=== PATIENT | male | born 1970 | race Caucasian/White ===

== ENCOUNTER 2020-01-10 18:05 | Inpatient (IN) | payer BC ==
--- OUTSIDE RECORDS SUMMARY | 2020-01-10 18:08 | XMS REPORT | Summary of Care ---
:1970 Author Organization [facility] - [facility] Address [address] [place] [id number] Care Team Providers Name Role Phone Abi Rodriguez Primary Care Provider Reason for Referral (Routine) Status Reason Specialty Diagnoses / Referred By Referred To Procedures Contact Contact Authorized Cardiology Diagnoses CORREA (dyspnea on exertion) Joyce Vann MD Procedures ECHO ROUTINE W/DOPPLER COLOR Preferred Location: [facility] [address] [facility] [address] [place], [place] [address] Radiology Services (Routine) Status Reason Specialty Diagnoses / Referred By Referred To Procedures Contact Contact New Request Diagnostic Diagnoses CORREA (dyspnea on exertion) Joyce Vann, Radiology Procedures NM MYOCARDIUM PERFUSION STRESS AND REST [address] 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 Rodriguez / blood pressure Onel Rodriguez Qiangjun, DISEASE / Procedures CONSULT/REFERRAL CARDIOLOGY NEW VISIT (FIRST TIME) [address] KATIE HAMMER Cardiology VIRAJ I [address] [id number] [address] Phone: [place], [place] [phone] Encounter Details Date Type Department Care Team Description [facility]ysp[facility] (Primary Dx); Cardiology- [address] Fatigue, unspecified type; [address] [place] [address] DRIVE Essential hypertension; Drive, [address] BRANDT treated with BiPAP; [place], [place] [address] Morbid obesity [id number] Allergies Active Allergy Reactions Severity Noted Date Comments Lisinopril Other - See comments 10/22/2019 vertogo Penicillins Anaphylaxis 05/07/2006 documented as of this encounter (statuses as of 10/22/2019) Medications Medication Sig Dispensed Refills Start End Date Status Date olmesartan 40 mg Take 40 mg by 0 Active tablet mouth daily. chlorthalidone 25 Take 25 mg by 0 Active mg tablet mouth daily. terazosin 1 mg Take 1 capsule 30 capsule 2 Active capsuleIndications by mouth at 0 : Essential bedtime. hypertension amLODIPine 10 mg Take 10 mg by 0 10/22/19 Discontinued tablet mouth daily. 20 (Discon tinued by another clinician) atenolol 100 mg Take 100 mg by 0 10/22/19 Discontinued tablet mouth daily. 20 (Discon tinued by another clinician) testosterone Apply 3 Pumps to 2 Bottle 1 10/22/19 Discontinued (ANDROGEL) 20.25 area(s) daily. 8 20 (Therapy mg/1.25 gram (1.62 c ompleted) %) gel pumpIndications: Low testosterone, Pain in both thighs traMADOL 50 mg Take 1 tablet by 21 tablet 0 10/22/19 Discontinued tablet mouth every 8 8 20 (Thera py (eight) hours as com pleted) needed (moderate-severe pain). methocarbamol 750 Take 1 tablet by 28 tablet 0 10/21 Discontinued mg tablet mouth 4 (four) 8 20 (Ther apy times daily as compl eted) needed (muscle pain or spasm). diclofenac 50 mg Take 1 tablet by 30 tablet 0 Discontinued EC tablet mouth 2 (two) 8 20 (Thera py times daily with com pleted) meals as needed for Pain. Use sparingly due to possible side effects. promethazine-codei TAKE 1 TO 2 0 10/22/19 Discontinued ne 6.25-10 mg/5 mL TEASPOONSFUL BY 0 20 (Therapy syrup MOUTH 3 TIMES A comp leted) DAY NEEDED benzonatate 100 mg TAKE 1 CAPSULE 0 Discontinued capsule BY MOUTH EVERY 4 0 20 (Th erapy HOURS NEEDED comp leted) documented as of this encounter (statuses as of 10/22/2019) Active Problems Problem Noted Date Bilateral thigh pain 01/28/2018 Left hand paresthesia 01/28/2018 Bilateral lower extremity edema 01/28/2018 Leukocytosis, unspecified type 01/28/2018 Anemia, unspecified type 01/28/2018 Hearing loss HTN (hypertension) Hypogonadism in male BRANDT (obstructive sleep apnea) documented as of this encounter (statuses as of 10/22/2019) Resolved Problems Problem Noted Date Resolved Date 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 18 Overview: Both ears, mainly right ear drainage; ve ry painful, sometimes blood, lot of ringing Dizziness and giddiness 07/30/2006 01/28/2018 Dyspepsia and other specified disorders of function of stoma ch 07/30/2006 01/28/2018 Overview: Upset stomach Dysphagia 07/30/2006 01/28/2018 Overview: Hard to swallow ICD10 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 documented as of this encounter Last Filed Vital Signs Vital Sign Reading Time Taken Comments Blood Pressure 122/72 10/22/2019 9:25 AM CDT Pulse 96 10/22/2019 9:25 AM CDT Temperature - - Respiratory Rate 21 10/22/2019 9:25 AM CDT Oxygen Saturation 94% 10/22/2019 9:25 AM CDT Inhaled Oxygen Concentration - - Weight 144.8 kg (319 lb 3.2 oz) 10/22/2019 9:25 AM CDT Height 175.3 cm (5' 9") 10/22/2019 9:25 AM CDT Body Mass Index 47.14 10/22/2019 9:25 AM CDT documented in this encounter Progress Notes Joyce Vann MD - 10/22/2019 9:20 AM CDT CARDIOLOGY CLINIC NOTE 10/22/2019 Reason for Referral/Presenting Complaint: dyspnea and fatigue PCP: Onel Rodriguez History of Present Illness: Yuri Crawford III is a 49 years old male with history of morbid obesity, HTN, and BRANDT on C-PAP. He is here for evaluation of dyspnea and fatigue. For the past 3 months he has been getting dyspnea with very short distance walking such as walking from room to room. No edema or orthopnea. Feeling tired all the time. Intermittent chest heaviness during exertion, rated 7/10, associated with dyspneaand sweating, without radiation. Gained 10 lbs this year. Getting BiPAP soon. His BP has been fluctuating although today it is normal. Intermittent palpitations. Non exertional left arm numbness. In the past he had side effects from amlodipine and beta blockers/spironolactone. Cardiovascular testing: EKG: Normal sinus rhythm. Normal EKG. Review of Systems: General: (-) fever, (-) chills, (-) weight change, (-) dizziness, (+) fatigue Skin: (-) rash HEENT: (-) headache, (-) change in vision Neck: (-) difficulty swallowing Heme: negative Resp: (-) cough, (+) dyspnea on exertion Cardio: (+) chest pain, (-) palpitations, (-) syncope GI: (-) vomiting, (-) diarrhea : negative Endo: (-) diabetes, (-) thyroid disease Neuro: (-) numbness, (-) tingling, (-) weakness Back: (-) pain ELSIE: (-) muscle pain, (-) claudication Psych: (-) anxiety, (-) depression Past Medical History: Past Medical History: Diagnosis Date Hearing loss HTN (hypertension) Hypogonadism in male BRANDT (obstructive sleep apnea) Current Medications: Current Outpatient Medications Medication Sig Dispense Refill chlorthalidone 25 mg tablet Take 25 mg by mouth daily. olmesartan 40 mg tablet Take 40 mg by mouth daily. terazosin 1 mg capsule Take 1 capsule by mouth at bedtime. 30 capsule 2 No current facility-administered medications for this visit. Social History: Social History Socioeconomic History Marital status: Spouse name: Not on file Number of children: Not on file Years of education: Not on file Highest education level: Not on file Occupational History Not on file Social Needs Financial resource strain: Not on file Food insecurity Worry: Not on file Inability: Not on file Transportation needs Medical: Not on file Non-medical: Not on file Tobacco Use Smoking status: Never Smoker Smokeless tobacco: Current User Types: Chew, Snuff Substance and Sexual Activity Alcohol use: Yes Comment: 3-4 times a year Drug use: Not on file Sexual activity: Not on file Lifestyle Physical activity Days per week: Not on file Minutes per session: Not on file Stress: Not on file Relationships Social connections Talks on phone: Not on file Gets together: Not on file Attends gnosticism service: Not on file Active member of club or organization: Not on file Attends meetings of clubs or organizations: Not on file Relationship status: Not on file Intimate partner violence Fear of current or ex partner: Not on file Emotionally abused: Not on file Physically abused: Not on file Forced sexual activity: Not on file Other Topics Concern Not on file Social History Narrative Not on file Family History Family History Problem Relation Age of Onset Coronary Heart Disease Mother Hypertension Mother Cancer Father [place] (myocardial infarction) Father Physical Examination: BP 122/72 (BP Location: Left arm, Patient Position: Sitting, BP CUFF SIZE: Adult Large) | Pulse 96| Resp 21 | Ht 5' 9" (1.753 m) | Wt 319 lb 3.2 oz (144.8 kg) | SpO2 94% | BMI 47.14 kg/m Constitutional: alert and oriented x 3 (person, place and date/time); no apparent distress, obese ENT: normocephalic atraumatic, supple, no lymphadenopathy, no bruits, no JVD Lungs: clear to auscultation bilaterally Cardiovascular: S1, S2 normal, regular; no murmurs, rubs or gallops GI: soft; non-tender; non-distended; normoactive bowel sounds : not examined Musculoskeletal: Extremities: no clubbing, cyanosis, or edema Skin: no rashes Neuro: no focal deficits Assessment/Plan: ICD-10-CM ICD-9-CM 1. CORREA (dyspnea on exertion) R06.09 786.09 2. Fatigue, unspecified type R53.83 780.79 3. Essential hypertension I10 401.9 4. BRANDT treated with BiPAP G47.33 327.23 5. Morbid obesity E66.01 278.01 Chest heaviness and dyspnea on exertion--Suspect this is multifactorial due to morbid obesity, BRANDT, and deconditioning. I reviewed his workup including CXR, BNP, etc--unremarkable. Will get ECHO to rule out structural heart disease and Lexiscan nuclear stress test to assess ischemia. HTN--His BP is normal today. However reported fluctuation at home. Side effects from several antihypertensives. Will add Terazosin 1 mg QHS. Daily BP log. Low salt diet. Weight loss. Morbid obesity--If cardiac workup negative, will strongly recommend gastric weight loss surgery. BRANDT--BiPAP pending. Patient was counseled for lifestyle modifications including: diet, exercise and weight loss Thank you for allowing us to participate in the care of your patient. Please feel free to contact usfor any questions or if we can be of further assistance. Joyce Vann MD, FACC, FASE Job Analyst, Division of Cardiology [facility] documented in this encounter Plan of Treatment Date Type Specialty Care Team Description 10/28/2019 Laboratory Only Cardiology Joyce Vann M D [address] [facility] [address] [place] [phone] Pc, Adc Echo Room 1 - Name Type Priority Associated Diagnoses Order S chedule NM MYOCARDIUM PERFUSION IMAGING Routine CORREA (dyspnea on 1 Occurrences starting STRESS AND REST exertion) 10/22/2019 u ntil 11/20/2019 Health Maintenance Due Date Last Done Comments DTaP,Tdap,and Td Vaccines (1 - 1988 Tdap) COLON CANCER SCREENING ANNUAL 2019 FIT/FOBT COLON CANCER SCREENING FIT DNA 2019 EVERY 3 YEARS COLON CANCER SCREENING 2019 SIGMOIDOSCOPY EVERY 5 YEARS COLONOSCOPY 2019 Colorectal Cancer Screening 2019 Zoster Recombinant Vaccine 2019 (SHINGRIX) (1 of 2) INFLUENZA VACCINE (#1) 2019 Depression Screening 10/21/2020 10/22/2019 PNEUMOCOCCAL 0-64 YEARS COMBINED Aged Out No longer eligible based on SERIES patient's age to complete this topic documented as of this encounter Results Not on filedocumented in this encounter Visit Diagnoses Diagnosis CORREA (dyspnea on exertion) - Primary Other dyspnea and respiratory abnormalit y Fatigue, unspecified type Essential hypertension Unspecified essential hypertension BRANDT treated with BiPAP Morbid obesity documented in this encounter Insurance Payer Benefit Plan Subscriber ID Effective Dates Phone Address Type / Group [facility] [id number] 2017-Katheryn [phone] [address] PPO/POS [place] - OUT OF t 7 [id number] [place] [address] documented as of this encounter
--- OUTSIDE RECORDS SUMMARY | 2020-01-10 18:08 | XMS REPORT | Summary of Care ---
:1970 Author Organization [facility] - [facility] Address [address] [place] [id number] Care Team Providers Name Role Phone Abi Rodriguez Primary Care Provider Reason for Referral Radiology Services (STAT) Status Reason Specialty Diagnoses / Referred By Referred To Procedures Contact Contact New Request Diagnostic Diagnoses Chest pain, unspecified type Molina Diaz, Radiology Procedures XR CHEST 1 VW DO [address] [facility]. [address] [place] [address] Reason for Visit Reason Comments Chest Pain Shortness of Breath Auth/Cert Status Reason Specialty Diagnoses / Referred By Referred To Procedures Contact Contact Emergency Medicine [facility] Em ergency Dept [address] [place] [address] Fax: Encounter Details Date Type Department Care Team Description 10/13/2019 Emergency [facility]-Emergency Molina Diaz DO Chest pain, Department [address] [place] [address]. unspecified type [address] [place] [address] [address] (Primary Dx) [place] [address] [place] [id number] [phone] Allergies Active Allergy Reactions Severity Noted Date Comments Penicillins Anaphylaxis 05/07/2006 documented as of this encounter (statuses as of 10/13/2019) Medications Medication Sig Dispensed Refills Start Date End Date Status amLODIPine 10 mg Take 10 mg by mouth 0 Active tablet daily. atenolol 100 mg Take 100 mg by 0 Active tablet mouth daily. testosterone Apply 3 Pumps to 2 Bottle 1 01/13/2018 Active (ANDROGEL) 20.25 area(s) daily. mg/1.25 gram (1.62 %) gel pumpIndications: Low testosterone, Pain in both thighs traMADOL 50 mg tablet Take 1 tablet by 21 tablet 0 01/22/2018 Active mouth every 8 (eight) hours as needed (moderate-severe pain). methocarbamol 750 mg Take 1 tablet by 28 tablet 0 01/22/2018 Active tablet mouth 4 (four) times daily as needed (muscle pain or spasm). diclofenac 50 mg EC Take 1 tablet by 30 tablet 0 02/24/2018 Active tablet mouth 2 (two) times daily with meals as needed for Pain. Use sparingly due to possible side effects. promethazine-codeine TAKE 1 TO 2 0 08/06/2019 Active 6.25-10 mg/5 mL syrup TEASPOONSFUL BY MOUTH 3 TIMES A DAY NEEDED benzonatate 100 mg TAKE 1 CAPSULE BY 0 08/06/2019 Active capsule MOUTH EVERY 4 HOURS NEEDED documented as of this encounter (statuses as of 10/13/2019) Active Problems Problem Noted Date Bilateral thigh pain 01/28/2018 Left hand paresthesia 01/28/2018 Bilateral lower extremity edema 01/28/2018 Leukocytosis, unspecified type 01/28/2018 Anemia, unspecified type 01/28/2018 Hearing loss HTN (hypertension) Hypogonadism in male BRANDT (obstructive sleep apnea) documented as of this encounter (statuses as of 10/13/2019) Resolved Problems Problem Noted Date Resolved Date 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 18 Overview: Both ears, mainly right ear drainage; ve ry painful, sometimes blood, lot of ringing Dizziness and giddiness 07/30/2006 01/28/2018 Dyspepsia and other specified disorders of function of stoma ch 07/30/2006 01/28/2018 Overview: Upset stomach Dysphagia 07/30/2006 01/28/2018 Overview: Hard to swallow ICD10 Diagnosis Term Nuclear Medical Technologist Utility documented as of this encounter (statuses as of 10/13/2019) Social History Tobacco Use Types Packs/Day Years Used Date Never Smoker 10 Smokeless Tobacco: Current User Chew, Snuff Alcohol Use Drinks/Week oz/Week Comments Yes 3-4 times a year Sex Assigned at Date Recorded Not on file Job Start Date Occupation Industry Not on file Not on file Not on file Travel History Travel Start Travel End No recent travel history available. COVID-19 Exposure Response Date Recorded In the last month, have you been in contact with No / Unsure 10/13/2019 1:17 PM CDT someone who was confirmed or suspected to have Coronavirus / COVID-19? documented as of this encounter Last Filed Vital Signs Vital Sign Reading Time Taken Comments Blood Pressure 140/76 10/13/2019 5:02 PM CDT Pulse 104 10/13/2019 5:02 PM CDT Temperature 37.1 C (98.8 F) 10/13/2019 1:25 PM CDT Respiratory Rate 22 10/13/2019 5:02 PM CDT Oxygen Saturation 98% 10/13/2019 5:02 PM CDT Inhaled Oxygen Concentration - - Weight 138.3 kg (305 lb) 10/13/2019 1:25 PM CDT Height 175.3 cm (5' 9") 10/13/2019 1:25 PM CDT Body Mass Index 45.04 10/13/2019 1:25 PM CDT documented in this encounter Plan of Treatment Date Type Specialty Care Team Description 10/22/2019 Office Visit Cardiology Joyce Vann M D [address] [place] [address] 15 [phone] Health Maintenance Due Date Last Done Comments DTaP,Tdap,and Td Vaccines (1 - 1980 Tdap) Depression Screening 1981 COLONOSCOPY 2019 Zoster Recombinant Vaccine 2019 (SHINGRIX) (1 of 2) INFLUENZA VACCINE (#1) 2019 PNEUMOCOCCAL 0-64 YEARS COMBINED Aged Out No longer eligible based on SERIES patient's age to complete this topic documented as of this encounter Procedures Procedure Name Priority Date/Time Associated Diagnosis Comme nts XR CHEST 1 VW STAT 10/13/2019 3:01 Chest pain, Results fo r this PM CDT unspecified type procedure a re in the results section. D-DIMER STAT 10/13/2019 2:48 Chest pain, Results for this PM CDT unspecified type procedure a re in the results section. N-TERMINAL PRO-BNP STAT 10/13/2019 2:34 Chest pain, Resul ts for this PM CDT unspecified type procedure a re in the results section. CBC WITH DIFF STAT 10/13/2019 2:34 Chest pain, Results fo r this PM CDT unspecified type procedure a re in the results section. LIPID PANEL STAT Add-On 10/13/2019 2:34 Chest pain, Results for this (83329)(TOTAL PM CDT unspecified type procedure are in CHOLESTEROL, the results TRIGLYCERIDES, section. HDL) COMP. METABOLIC STAT 10/13/2019 2:34 Chest pain, Results for this PANEL (15395) PM CDT unspecified type procedure are in the results section. TROPONIN I STAT 10/13/2019 2:34 Chest pain, Results for this PM CDT unspecified type procedure a re in the results section. LIPASE STAT 10/13/2019 2:34 Chest pain, Results for this PM CDT unspecified type procedure a re in the results section. NOTICE OF PRIVACY Routine 10/13/2019 1:29 PRACTICES PM CDT CONSENT/REFUSAL Routine 10/13/2019 1:18 FOR DIAGNOSIS AND PM CDT TREATMENT documented in this encounter Results XR CHEST 1 VW (10/13/2019 3:01 PM CDT) Specimen Narrative Performed At HISTORY: Chest pain. PACS/VR/DOSE TECHNIQUE: 2 Portable AP erect views of the chest were obtained. No prior chest study available for comparison. FINDINGS: No acute pneumonia. No pneumot horax or pleural effusion or pulmonary congestion detected. Cardiac s ize is mildly enlarged. CONCLUSIONS: No signs of acute cardiopulmonary disease . Procedure Note [facility], Radiant Results Inft User - 2019 3:08 PM CDT HISTORY: Chest pain. TECHNIQUE: 2 Portable AP erect views of the chest were obtained. No prior chest study available for comparison. FINDINGS: No acute pneumonia. No pneumot horax or pleural effusion or pulmonary congestion detected. Cardiac s ize is mildly enlarged. CONCLUSIONS: No signs of acute cardiopul monary disease. Performing Organization Address City/State/Zipcode Phone Number PACS/VR/DOSE D-DIMER (10/13/2019 2:48 PM CDT) Pathologist Sig nature D-DIMER 0.36 <0.41 g/mL (FEU) [facility] Specimen Blood - VENOUS Narrative Performed At This test may be used in conjunction with a [facility] clinical pretest probability (PTP) assessment model to exclude venous thromboembolism (VTE) in patients suspected of deep venous thrombosis (DVT) and pulmonary embolism (PE) A D-Dimer value less than 0.50 g/ml (FEU) has a negative predicative value of 96 to 100% (95% CI)and 97 to 100% (95% CI) as an aid in the diagnosis of deep vein thrombosis (DVT) and pulmonary embolism when there is low or moderate pretest probability of PE or DVT. D-Dimer values are expressed in initial fibrinogen equivalent units (FEU)" The assay results should be used with other information, including the clinical context, in forming a diagnosis. Performing Organization Address City/[facility]/Zipcode Phone Number [facility] CLIA: [id number], [address] [place], [place] [address] LIPID PANEL (05689)(TOTAL CHOLESTEROL, TRIGLYCERIDES, HDL) (10/13/2019 2:34 PM CDT) Pathologist Sig nature CHOL 176 120 - 200 mg/dL [facility] HDL 35 (L) >40 mg/dL [facility] HDLC RATIO 5.0 <=5.0 [facility] TRIG 246 (H) 30 - 170 mg/dL [facility] LDL CHOL 92 <=160 mg/dL [facility] VLDL 49 5 - 60 mg/dL [facility] Specimen Blood - VENOUS Performing Organization Address City/[facility] Phone Number [facility] CLIA: [id number], [address] [place] [address] TROPONIN I (10/13/2019 2:34 PM CDT) Pathologist Sig nature TROPONIN I <0.012 <=0.034 ng/mL [facility] Specimen Blood - VENOUS Narrative Performed At Equal or Less than 0.034 ng/ml---Normal [facility] Note: Cardiac troponin begins to rise 3-4 hours after the onset of ischemia. Repeat in 4-6 hours if the sample was drawn within 3-4 hours of the onset of the symptom and found normal. Between 0.035 and 0.120 ng/mL--- Borderline. Questionable myocardial injury or necros is Note: Serial measurement may be necessary to confirm or exclude the diagnosis of myocardial injury or necrosis; Clinical correlation (symptoms, EKGs, imaging studies, and others) required; Repeat in 4-6 hours if clinically indicated. Equal or Higher than 0.121 ng/mL---Abnormal. Myocardial Injury or Necrosis Likely Biotin has been reported to cause a negative bias, interpret results relative to patient's use of biotin. Performing Organization Address City/[facility] Phone Number [facility] CLIA: [id number], [address] [place] [address] N-TERMINAL PRO-BNP (10/13/2019 2:34 PM CDT) Pathologist Sig Praccel NT-proBNP 57 <=125 pg/mL [facility] Specimen Blood - VENOUS Narrative Performed At [facility] has been reported to cause a negative [facility] bias, interpret results relative to patient's use of biotin. Performing Organization Address [facility] Phone Number [facility] CLIA: [id number], [address] [place] [address] LIPASE (10/13/2019 2:34 PM CDT) Pathologist [facility] Praccel LIPASE 68 0 - 220 U/L [facility] Specimen Blood - VENOUS Performing Organization Address [facility] Phone Number [facility] CLIA: [id number], [address] [place] [address] COMP. METABOLIC PANEL ([id number]) (10/13/2019 2:34 PM CDT) Pathologist Sig Praccel NA 137 135 - 145 [facility] mmol/L [facility] K 4.0 3.5 - 5.0 [facility] mmol/L [facility] CL 105 98 - 108 mmol/L [facility] CO2 TOTAL 23 23 - 31 mmol/L [facility] AGAP 9 2 - 16 [facility] BUN 22 7 - 23 mg/dL [facility] GLUCOSE 88 70 - 110 mg/dL [facility] CREATININE 1.22 0.60 - 1.25 [facility] mg/dL [facility] TOTAL BILI 0.5 0.1 - 1.1 mg/dL [facility] CALCIUM 9.2 8.6 - 10.6 [facility] mg/dL [facility] T PROTEIN 8.5 (H) 6.3 - 8.2 g/dL [facility] ALBUMIN 4.3 3.5 - 5.0 g/dL [facility] ALK PHOS 106 34 - 122 U/L [facility] ALTv 35 5 - 50 U/L [facility] AST(SGOT) 34 13 - 40 U/L [facility] eGFR Calculation 62.9 mL/min/1.73m2 [facility] ([facility] LABORATORY [place]) eGFR Calculation 76.2 mL/min/1.73m2 [facility] () [facility] Specimen Blood - VENOUS Narrative Performed At [facility] Glomerular Filtration Rate (GFR) [facility] and Staging of Kidney Disease* + + +- + | GFR (mL/min/1.73 m2) | With Kidney Damage | Without Kidney Damage + + +- + | >90 | Stage one | Normal + + +- + | 60-89 | Stage two | Decreased GFR + + +- + | 30-59 | Stage three | Stage three + + +- + | 15-29 | Stage four | Stage four + + +- + | <15 (or dialysis) | Stage five | Stage five + + +- + *Each stage assumes the associated GFR level has been in effect for at least three months. Stages 1 to 5, with or without kidney disease, indicate chronic kidney disease. Notes: Determination of stages one and two (with eGFR >59mL/min/1.73 m2) requires estimation of kidney damage for at least three months as defined by structural or functional abnormalities of the kidney, manifested by either: Pathological abnormalities or Markers of kidney damage (including abnormalities in the composition of the blood or urine or abnormalities in imaging tests). Performing Organization Address City/State/Zipcode Phone Number [facility] CLIA: [id number], [address] [place], [place] [address] CBC WITH DIFF (10/13/2019 2:34 PM CDT) [facility] WBC 12.20 (H) 4.20 - 10.70 [facility] 10*3/L [facility] RBC 5.32 4.26 - 5.52 [facility] 10*6/L [facility] HGB 11.3 (L) 12.2 - 16.4 [facility] g/dL [facility] HCT 37.0 (L) 38.4 - 49.3 % [facility] MCV 69.5 (L) 81.7 - 95.6 fL [facility] MCH 21.2 (L) 26.1 - 32.7 pg [facility] MCHC 30.5 (L) 31.2 - 35.0 [facility] g/dL [facility] RDW-SD 41.8 38.5 - 51.6 fL [facility] RDW-CV 17.0 (H) 12.1 - 15.4 % [facility] PLT 444 (H) 150 - 328 [facility] 10*3/L [facility] MPV 9.6 (L) 9.8 - 13.0 fL [facility] NRBC/100 WBC 0.0 0.0 - 10.0 /100 [facility] WBCs [facility] NRBC x10^3 <0.01 10*3/L [facility] GRAN MAT (NEUT) % 72.7 % [facility] IMM GRAN % 0.80 % [facility] LYMPH % 17.2 % [facility] MONO % 8.1 % [facility] EOS % 0.5 % [facility] BASO % 0.7 % [facility] GRAN MAT x10^3(ANC) 8.87 (H) 1.99 - 6.95 [facility] 10*3/uL HOSPITAL LAB[facility]ATORY IMM GRAN x10^3 0.10 (H) 0.00 - 0.06 [facility] 10*3/uL HOSPITAL LAB[facility]ORY LYMPH x10^3 2.10 1.09 - 3.23 [facility] 10*3/uL HOSPITAL LAB[facility]ORY MONO x10^3 0.99 0.36 - 1.02 [facility] 10*3/uL HOSPITAL LAB[facility]ATORY EOS x10^3 0.06 0.06 - 0.53 [facility] 10*3/uL HOSPITAL LAB[facility]ORY BASO x10^3 0.08 0.01 - 0.09 [facility] 10*3/uL [facility] Specimen Blood - VENOUS Performing Organization Address City/State/Zipcode Phone Number [facility] CLIA: [id number], [address] [place], [place] [address] documented in this encounter Visit Diagnoses Diagnosis Chest pain, unspecified type - Primary documented in this encounter Administered Medications Medication Order MAR Action Action Date Dose Rate Site NaCl 0.9% (NS) bolus infusion 500 mL at 999 mL/hr, 500 mL, IV Infusion, ONCE, 1 dose, Fri at 1815, STAT Medication Order MAR Action Action Date Dose Rate Site NaCl 0.9% (NS) bolus New Bag 10/13/2019 2:34 PM CDT 500 mL 99 9 mL/hr infusion 500 mL at 999 mL/hr, 500 mL, IV Infusion, ONCE, 1 dose, Fri10/13/19 at 1430, STAT documented in this encounter Insurance Payer Benefit Plan Subscriber ID Effective Dates Phone Address Type / Group [facility] [id number] 2017-Katheryn [phone] [address] PPO/POS [place] - OUT OF t 7 [id number] [place] [address] documented as of this encounter
--- OUTSIDE RECORDS SUMMARY | 2020-01-10 18:08 | XMS REPORT | Continuity of Care Document ---
:1970 Author Organization [facility] t Address [address] [place] [address] Care Team Providers Name Role Phone Lab, Fam Pob I Attending Clinician Unavailable Edwar HAMMER Attending Clinician Kristina Basilio MD Attending Clinician Pob, Lab Main Attending Clinician Unavailable Only, Test Attending Clinician Unavailable Doctor Unassigned, Name Attending Clinician Unavailable Problems This patient has no known problems. Allergies, Adverse Reactions, Alerts This patient has no known allergies or adverse reactions. Medications This patient has no known medications. Procedures This patient has no known procedures. Encounters Start End Encounter Admission Attending Care Care Encounter Source Date/Time Date/Time Type Type Clinicians Facility Department ID 2020-01-08 2020-01-08 Laboratory Lab, [facility] [id number] 09:46:41 10:06:41 Only Fam Pob I Health [id number] [place] 4.2.7.2.686 Professio [phone] nal [address] 2019-12-03 2019-12-03 [facility] Joyce Vann [id number] 06:39:04 23:59:00 Encounter Esa Basilio [id number] [facility] [id number] [id number] 2019-11-30 2019-11-30 Telephone Edwar, [facility] [id number] 00:00:00 00:00:00 Joyce Smith [id number] [place] [phone] [facility] 2019-11-29 2019-11-29 Aging Department Supervisor Kaylyn, [facility] [id number] 09:14:49 09:29:49 Visit Lab Main Sarah [id number] [place] 4.2.7.2.686 Professio [phone] [facility] [address] [facility] 2019-11-29 2019-11-29 Laboratory Only, [facility] [id number] 09:11:18 09:26:18 Only Test Sarah [id number] [place] [id number] [place] [id number] [facility] 2019-11-29 2019-11-29 Orders Doctor NAYANA [id number] 00:00:00 00:00:00 Only Unassigned, [place] [id number] [place] [facility] 4.2.7.2.686 [phone] [id number] 2019-11-26 2019-11-26 Patient Psychiatric, [facility] [id number] 00:00:00 00:00:00 Secure Ms [employer] [id number] [place] 4.2.7.2.686 [place] [phone] [place] [address] [facility] 2019-11-26 2019-11-26 Patient Psychiatric, [facility] [id number] 00:00:00 00:00:00 Secure g [employer] [id number] [place] 4.2.7.2.686 Ha [phone] [facility] Office Building 2019-11-26 2019-11-26 Patient Psychiatric, [facility] [id number] 00:00:00 00:00:00 Secure [facility] [place] [place] [employer] [id number] [place] 4.2.7.2.686 Ha [phone] Medical [facility] Office [facility] 2019-11-25 2019-11-25 Telephone Edwar, Allyn [id number] 00:00:00 00:00:00 Joyce Powers [id number]686 [id number] [id number] 2019-11-17 2019-11-17 Telephone Allyn Vann [id number] 00:00:00 00:00:00 Joyce Powers [id number]686 [phone] 247 Results This patient has no known results.
--- OUTSIDE RECORDS SUMMARY | 2020-01-10 18:09 | XMS REPORT | Summary of Care ---
:1970 Author Organization [facility] - [facility] Address [address] [place] [address] Care Team Providers Name Role Phone Abi Rodriguez Primary Care Provider Reason for Referral Radiology Services (Routine) Status Reason Specialty Diagnoses / Referred By Referred To Procedures Contact Contact Authorized Diagnostic Diagnoses CORREA (dyspnea on exertion) Joyce Vann, Radiology Procedures NM MYOCARDIUM PERFUSION STRESS AND REST [address] [place] [address] [address] [place] [address] Reason for Visit Radiology Services (Routine) Status Reason Specialty Diagnoses / Referred By Referred To Procedures Contact Contact Authorized Diagnostic Diagnoses CORREA (dyspnea on exertion) Joyce Vann, Radiology Procedures NM MYOCARDIUM PERFUSION STRESS AND REST [address] [place] [address] [address] [place] [address] Encounter Details Date Type Department Care Team Description 11/04/2019 Hospital Encounter [facility] Nuclear Morena Vann MD [facility] [address] [place] [address] [address] [address] [place] [address] [phone] Allergies Active Allergy Reactions Severity Noted Date Comments Lisinopril Other - See comments 10/22/2019 vertogo Penicillins Anaphylaxis 05/07/2006 documented as of this encounter (statuses as of 11/05/2019) Medications Medication Sig Dispensed Refills Start Date End Date Status olmesartan 40 mg tablet Take 40 mg by 0 Active mouth daily. chlorthalidone 25 mg Take 25 mg by 0 Active tablet mouth daily. terazosin 1 mg Take 1 capsule 30 capsule 2 10/22/2019 Active capsuleIndications: by mouth at Essential hypertension bedtime. 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 18 Overview: Both ears, mainly right ear drainage; ve ry painful, sometimes blood, lot of ringing Dizziness and giddiness 07/30/2006 01/28/2018 Dyspepsia and other specified disorders of function of stoma ch 07/30/2006 01/28/2018 Overview: Upset stomach Dysphagia 07/30/2006 01/28/2018 Overview: Hard to swallow ICD10 Diagnosis Term Clerk Supervisor Utility documented as of this encounter (statuses as of 11/05/2019) Social History Tobacco Use Types Packs/Day Years Used Date Never Smoker 10 Smokeless Tobacco: Current User Chew, Snuff Alcohol Use Drinks/Week oz/Week Comments Yes 3-4 times a year Sex Assigned at Date Recorded Not on file COVID-19 Exposure Response Date Recorded In the last month, have you been in contact with No / Unsure 10/25/2019 2:49 PM CDT someone who was confirmed or suspected to have Coronavirus / COVID-19? documented as of this encounter Last Filed Vital Signs Not on filedocumented in this encounter Plan of Treatment Date Type Specialty Care Team Description 11/05/2019 Appointment Joyce Auguste M D [address] [address] 15 11/05/2019 Appointment Joyce Auguste M D [address] [address] 25 [phone] Name Type Priority Associated Diagnoses Date/Ti me NM MYOCARDIUM PERFUSION IMAGING Routine CORREA (dyspnea on 0 11/04/2019 8:30 AM STRESS AND REST exertion) CDT Name Type Priority Associated Diagnoses Order S chedule NM MYOCARDIUM PERFUSION IMAGING Routine CORREA (dyspnea on O NCE for 1 Occurrences STRESS AND REST exertion) starting until 0 Health Maintenance Due Date Last Done Comments [...] Visit Diagnoses Diagnosis CORREA (dyspnea on exertion) Other dyspnea and respiratory abnormalit y documented in this encounter Administered Medications Medication Order MAR Action Action Date Dose Rate Site tc 99m-tetrofosmin Given 11/04/2019 9:15 AM 39.2 millicuries Left Arm (MYOVIEW) injection 40 CDT millicurie 40 millicurie, Intravenous, ONCE, 1 dose, Tiarra 11/04/19 at 0915, Routine documented in this encounter Insurance Payer Benefit Plan Subscriber ID Effective Dates Phone Address Type / Group BCBS OF [facility] [id number] 2017-Katheryn [phone] [address] PPO/POS [place] - OUT OF t 7 [id number] [place] [address] documented as of this encounter
--- OUTSIDE RECORDS SUMMARY | 2020-01-10 18:09 | XMS REPORT | Summary of Care ---
:1970 Author Organization [facility] - [facility] Address [address] [place] [address] Care Team Providers Name Role Phone Abi Rodriguez Primary Care Provider Reason for Visit (Routine) Status Reason Specialty Diagnoses / Procedures Referred By Mariana guadarrama Referred To Contact Closed Cardiology Diagnoses CORREA (dyspnea on exertion) Epifanio Hou MD Procedures ECHO ROUTINE W/DOPPLER COLOR Preferred Location: [facility] [address] [facility] [address] [place], [place] [address] Phone: Encounter Details Date Type Department Care Team Description 10/28/2019 Laboratory Only [facility] Epifanio Hou M D [address] [place] [address] [address] [place] [address] CORREA (dyspnea on Cardiology- [facility], Adc Echo Room 1 - exertion) [address] [place] [address], [address] [place] [address] Allergies Active Allergy Reactions Severity Noted Date Comments Lisinopril Other - See comments 10/22/2019 vertogo Penicillins Anaphylaxis 05/07/2006 documented as of this encounter (statuses as of 10/28/2019) Medications Medication Sig Dispensed Refills Start Date End Date Status olmesartan 40 mg tablet Take 40 mg by 0 Active mouth daily. chlorthalidone 25 mg Take 25 mg by 0 Active tablet mouth daily. terazosin 1 mg Take 1 capsule 30 capsule 2 10/22/2019 Active capsuleIndications: by mouth at Essential hypertension bedtime. Hospital, Clinic, or Other Ordered Dose Route Frequency Start Date End Date Status Facility Administered Medication sulfur hexafluoride 5 mL IV ONCE 10/28/2019 0 Ended microsphr (LUMASON) injection 5 mL documented as of this encounter (statuses as of 10/28/2019) Active Problems Problem Noted Date Bilateral thigh pain 01/28/2018 Left hand paresthesia 01/28/2018 Bilateral lower extremity edema 01/28/2018 Leukocytosis, unspecified type 01/28/2018 Anemia, unspecified type 01/28/2018 Hearing loss HTN (hypertension) Hypogonadism in male BRANDT (obstructive sleep apnea) documented as of this encounter (statuses as of 10/28/2019) Resolved Problems Problem Noted Date Resolved Date 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 18 Overview: Both ears, mainly right ear drainage; ve ry painful, sometimes blood, lot of ringing Dizziness and giddiness 07/30/2006 01/28/2018 Dyspepsia and other specified disorders of function of stoma ch 07/30/2006 01/28/2018 Overview: Upset stomach Dysphagia 07/30/2006 01/28/2018 Overview: Hard to swallow ICD10 Diagnosis Term 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 documented as of this encounter (statuses as of 10/28/2019) Social History Tobacco Use Types Packs/Day Years [...] Sign Reading Time Taken Comments Blood Pressure 104/81 10/28/2019 3:35 PM CDT Pulse 106 10/28/2019 3:35 PM CDT Temperature - - Respiratory Rate - - Oxygen Saturation - - Inhaled Oxygen Concentration - - Weight 144.7 kg (319 lb) 10/28/2019 3:35 PM CDT Height 175.3 cm (5' 9") 10/28/2019 3:35 PM CDT Body Mass Index 47.11 10/28/2019 3:35 PM CDT documented in this encounter Plan of Treatment Date Type Specialty Care Team Description 11/01/2019 Appointment Radiology Epifanio Hou M D 146 [facility] [address] [place] [address] [phone] 11/01/2019 Appointment Radiology Epifanio Hou M D 146 [facility] [address] [place] [address] 11/01/2019 Appointment Radiology Epifanio Hou M D 146 [facility] [address] [place] [address] [phone] 11/01/2019 Appointment Radiology Epifanio Hou M D [address] [address] [phone] Health Maintenance Due Date Last Done Comments [...] MAR Action Action Date Dose Rate Site sulfur hexafluoride microsphr Given 10/28/2019 3:27 PM CDT 5 mL (LUMASON) injection 5 mL 5 mL, Intravenous, ONCE, 1 dose, Tiarra 10/28/19 at 1530, Routine, adjunct communications faculty member approving Restricted medication: EPIFANIO HOU documented in this encounter Insurance Payer Benefit Plan Subscriber ID Effective Dates Phone Address Type / Group BCBS OF [facility] [id number] 2017-Katheryn [phone] [address] PPO/POS [place] - OUT OF t 7 [id number] [place] [address] documented as of this encounter
--- OUTSIDE RECORDS SUMMARY | 2020-01-10 18:09 | XMS REPORT | Summary of Care ---
:1970 Author Organization [facility] Address [address] [place] [address] Care Team Providers Name Role Phone Abi Rodriguez Primary Care Provider Reason for Visit Radiology Services (Routine) Status Reason Specialty Diagnoses / Referred By Referred To Procedures Contact Contact Closed Diagnostic Diagnoses CORREA (dyspnea on exertion) Joyce Vann MD Radiology Procedures NM MYOCARDIUM PERFUSION STRESS AND REST [address] [facility] [address] [place] [address] Encounter Details Date Type Department Care Team Description 11/05/2019 Hospital Encounter [facility] Nuclear Morena Vann MD Arrived Medicine [address] [place] [address] [phone] [place], [place] [address] Allergies Active Allergy Reactions Severity Noted Date Comments Lisinopril Other - See comments 10/22/2019 vertogo Penicillins Anaphylaxis 05/07/2006 documented as of this encounter (statuses as of 11/06/2019) Medications Medication Sig Dispensed Refills Start Date End Date Status olmesartan 40 mg tablet Take 40 mg by 0 Active mouth daily. chlorthalidone 25 mg Take 25 mg by 0 Active tablet mouth daily. terazosin 1 mg Take 1 capsule 30 capsule 2 10/22/2019 Active capsuleIndications: by mouth at Essential hypertension bedtime. 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 18 Overview: Both ears, mainly right ear drainage; ve ry painful, sometimes blood, lot of ringing Dizziness and giddiness 07/30/2006 01/28/2018 Dyspepsia and other specified disorders of function of stoma ch 07/30/2006 01/28/2018 Overview: Upset stomach Dysphagia 07/30/2006 01/28/2018 Overview: Hard to swallow ICD10 Diagnosis 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 PROCEDURE/TECHNIQUE: A 2 day protocol was utilized. Patient received a 0.4 mg Le xiscan infusion followed by intravenous injection of 40 mCi of techn etium 99m Myoview. A gated SPECT scan was obtained. Patient was subsequently inj ected with 40 mCi of technetium 99m Myoview for rest imaging. A gated SPECT scan was obtained. FINDINGS: Pre Stress Test vitals are: BP?113/75?HR 93?Resp 18?O2 sat 95 ? Injection vitals are: BP?126 /90?HR 109?Resp 20?O2 sat 98. ? Recovery vitals are: BP?116/ 69?HR 111?Resp 18?O2 sat 99. Small perfusion defect is no flory at the anterior wall, along the LAD distribution. Large fixed de fect is noted at the inferolateral wall, within the RCA and circumflex junct ion. The left ventricular wall mo tion is normal after stress and rest. Ejection fraction at stress: 68% End-diastolic volume at stre ss: 76mL Ejection fraction rest: 61% End-diastolic volume at rest : 86mL IMPRESSION 1. Small anterior wall ische rodney within the LAD distribution. 2. Large inferolateral wall fixed defect, reflecting sequela of prior infarct. 3. Normal left ventricular f unction and motion. Preliminary Report Dictated by Resident: Marco Antonio Newsome documented in this encounter Results Not on filedocumented in this encounter Administered Medications Medication Order MAR Action Action Date Dose Rate Site tc 99m-tetrofosmin Given 11/05/2019 8:45 AM 40 millicuries Right Arm (MYOVIEW) injection 40 CDT millicurie 40 millicurie, Intravenous, ONCE, 1 dose, Fri11/05/19 at 0845, Routine documented in this encounter Insurance Payer Benefit Plan Subscriber ID Effective Dates Phone Address Type / Group BCBS [facility] [id number] 2017-Presrupali [phone] [address] PPO/POS [place] - OUT OF t 7 [id number] [place] [address] documented as of this encounter
--- OUTSIDE RECORDS SUMMARY | 2020-01-10 18:09 | XMS REPORT | Summary of Care ---
:1970 Author Organization [facility] - [facility] Address [address] [place] [address] Care Team Providers Name Role Phone Abi Rodriguez Primary Care Provider Encounter Details Date Type Department Care Team Description 10/22/2019 Orders Only [facility] Doctor Unassigned, No [address] [facility] [place] [address] [address] [place] [address] Allergies Active Allergy Reactions Severity Noted Date Comments Lisinopril Other - See comments 10/22/2019 vertogo Penicillins Anaphylaxis 05/07/2006 documented as of this encounter (statuses as of 10/22/2019) Medications Medication Sig Dispensed Refills Start Date [...] Overview: Hard to swallow ICD10 Diagnosis Term 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 documented as of this encounter (statuses [...] Laboratory Only Cardiology Joyce Vann M D [address] [place] [address] [place] [phone] Pc, Adc Echo Room 1 - Health Maintenance Due Date Last Done Comments [...] Name Priority Date/Time Associated Diagnosis Comme nts EXTERNAL PROVIDER - ADC Routine 10/22/2019 12:01 AM CDT REFERRAL documented in this encounter Results Not on filedocumented in this encounter Insurance Payer Benefit Plan Subscriber ID Effective Dates Phone Address Type / Group [id number] 2017-Katheryn [phone] [address] PPO/POS [place] - OUT OF t 7 [id number] [place] [address] documented as of this encounter
--- OUTSIDE RECORDS SUMMARY | 2020-01-10 18:09 | XMS REPORT | Summary of Care ---
:1970 Author Organization [facility] - [facility] Address [address] [place] [address] Care Team Providers Name Role Phone Abi Rodriguez Primary Care Provider Reason for Visit Reason Comments Results The patient is requesting a call with results for his stress test Encounter Details Date Type Department Care Team Description 11/08/2019 Telephone [facility] Joyce Vann M D Results (The patient Cardiology- [address] is requesting a call [address] [place] [address] with results for his [address] stress test ) [place], [place] [phone] [phone] Allergies Active Allergy Reactions Severity Noted Date Comments Lisinopril Other - See comments 10/22/2019 vertogo Penicillins Anaphylaxis 05/07/2006 documented as of this encounter (statuses as of 11/08/2019) Medications Medication Sig Dispensed Refills Start Date End Date Status olmesartan 40 mg tablet Take 40 mg by 0 Active mouth daily. chlorthalidone 25 mg Take 25 mg by 0 Active tablet mouth daily. terazosin 1 mg Take 1 capsule 30 capsule 2 10/22/2019 Active capsuleIndications: by mouth at Essential hypertension bedtime. 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 18 Overview: Both ears, mainly right ear drainage; ve ry painful, sometimes blood, lot of ringing Dizziness and giddiness 07/30/2006 01/28/2018 Dyspepsia and other specified disorders of function of stoma ch 07/30/2006 01/28/2018 Overview: Upset stomach Dysphagia 07/30/2006 01/28/2018 Overview: Hard to swallow ICD10 Diagnosis Term 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 elephone Encounter - Ranjana Rodriguez - 11/08/2019 8:30 AM CDTThe patient is requesting a call with results for his stress test documented in this encounter Plan of Treatment Health [...] Phone Address Type / Group BCBS OF [facility] [place] [id number] 2017-Katheryn [phone] [address] PPO/POS [place] - OUT OF t 7 [id number] [place] [address] documented as of this encounter
--- OUTSIDE RECORDS SUMMARY | 2020-01-10 18:09 | XMS REPORT | Summary of Care ---
:1970 Author Organization [facility] Address [address] [place] [address] Care Team Providers Name Role Phone Abi Rodriguez Primary Care Provider Reason for Visit Radiology Services (Routine) Status Reason Specialty Diagnoses / Referred By Referred To Procedures Contact Contact Authorized Diagnostic Diagnoses CORREA (dyspnea on exertion) Joyce Vann, Radiology Procedures NM MYOCARDIUM PERFUSION STRESS AND REST [address] [place] [address] [address] [place] [address] Encounter Details Date Type Department Care Team Description 11/04/2019 Hospital Encounter [facility] Nuclear Morena Vann MD Arrived Medicine [address] [place] [address] [address] [address] [place], [place] [address] Allergies Active Allergy Reactions Severity Noted Date [...] Overview: Hard to swallow ICD10 Diagnosis Term 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 Pt is AAOx3 and is in NAD. Pt identified using Name & . Pt endorses being NPO since 11/03/19 1800. Indication for this Stress Test is CORREA. Last caffeine intake @ 11/03/19 0800 NM Tech monitoring is Jaki Supervising physician Bebeto obtained consent at 0912 Time out completed 09 Lexiscan 0.4mg/5mL injected at 0914, followed by 5mL NS flush. Pre Stress Test vitals are: BP 113/75 HR 93 Resp 18 O2 sat 95 Injection vitals are: BP 126/90 HR 109 Resp 20 O2 sat 98. Recovery vitals are: BP 116/69 HR 111 Resp 18 O2 sat 99. Pt tolerated procedure well, no complaints, no apparent distress upon completion. documented in this encounter Plan of Treatment Date Type Specialty Care Team Description 11/05/2019 Appointment Radiology Joyce Vann M D 146 [facility] [address] [place], [place] [address] 11/05/2019 Appointment Radiology Joyce Vann M D 146 [facility] [address] [place], [place] [address] Health Maintenance Due Date Last Done Comments [...] MAR Action Action Date Dose Rate Site Regadenoson (LEXISCAN) injection Given 11/04/2019 9:14 AM CDT 0.4 mg PRN, Starting Tiarra 11/04/19 at 0914, Until Tiarra 11/04/19 at 0914, Routine documented in this encounter Insurance Payer Benefit Plan Subscriber ID Effective Dates Phone Address Type / Group BCBS OF [facility] [id number] 2017-Katheryn [phone] [address] PPO/POS [place] - OUT OF t 7 [id number] [place] [address] documented as of this encounter
--- OUTSIDE RECORDS SUMMARY | 2020-01-10 18:09 | XMS REPORT | Summary of Care ---
:1970 Author Organization [facility] Address [address] [place] [address] Care Team Providers Name Role Phone Abi Rodriguez Primary Care Provider Reason for Visit Radiology Services (Routine) Status Reason Specialty Diagnoses / Referred By Referred To Procedures Contact Contact Closed Diagnostic Diagnoses CORREA (dyspnea on exertion) Joyce Vann MD Radiology Procedures NM MYOCARDIUM PERFUSION STRESS AND REST [address] [facility] [address] [place] [address] Encounter Details Date Type Department Care Team Description 11/05/2019 Hospital Encounter [facility] Nuclear Morena Vann MD Arrived Medicine [address] [place] [address] [phone] [place], [place] [address] Allergies Active Allergy Reactions Severity Noted Date [...] Overview: Hard to swallow ICD10 Diagnosis Term 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 documented as of this encounter [...] filedocumented in this encounter Plan of Treatment Name Type Priority Associated Diagnoses Date/Ti me NM MYOCARDIUM PERFUSION IMAGING Routine CORREA (dyspnea on 0 11/05/2019 9:43 AM STRESS AND REST exertion) CDT Health Maintenance Due Date Last Done Comments [...] STRESS AND REST HISTORY: CP 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
--- OUTSIDE RECORDS SUMMARY | 2020-01-10 18:09 | XMS REPORT | Summary of Care ---
:1970 Author Organization [facility] [[email or web address] - [facility] Address [address] [place] [address] Care Team Providers Name Role Phone Abi Rodriguez Primary Care Provider Reason for Referral (Routine) Status Reason Specialty Diagnoses / Referred By Referred To Procedures Contact Contact Authorized Cardiology Diagnoses CORREA (dyspnea on exertion) Joyce Vann MD Procedures ECHO ROUTINE W/DOPPLER COLOR Preferred Location: [facility] [address] [address] [place], [place] [address] Radiology Services (Routine) Status Reason Specialty Diagnoses / Referred By Referred To Procedures Contact Contact New Request Diagnostic Diagnoses CORREA (dyspnea on exertion) Joyce Vann, Radiology Procedures NM MYOCARDIUM PERFUSION STRESS AND REST [address] [place] [address] Reason for Visit Reason Comments New Patient Establish Care/Hospital Foll ow up (Routine) Status Reason Specialty Diagnoses / Referred By Referred To Procedures Contact Contact Closed IM-CARDIOVASCULAR Diagnoses 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 Rodriguez / blood pressure Onel Rodriguez Qiangjun, DISEASE / Procedures CONSULT/REFERRAL CARDIOLOGY NEW VISIT (FIRST TIME) [address] KATIE [place] Cardiology VIRAJ I 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 Joyce Vann MD, FACC, FASE [employer] Packages Sealer, Division of Cardiology [facility] documented in this encounter Plan of Treatment Date Type Specialty Care Team Description 10/28/2019 Laboratory Only Cardiology Joyce Vann M D [address] [facility] [address] [place] [phone] Pc, Adc Echo Room 1 - Name [...] Effective Dates Phone Address Type / Group [facility] [id number] 2017-Katheryn [phone] [address] PPO/POS [place] - OUT OF t 7 [id number] [place] [address] documented as of this encounter
--- OUTSIDE RECORDS SUMMARY | 2020-01-10 18:10 | XMS REPORT | Summary of Care ---
:1970 Author Organization [facility] Address [address] [place] [address] Care Team Providers Name Role Phone Abi Rodriguez Primary Care Provider Reason for Referral (Routine) Status Reason Specialty Diagnoses / Referred By Referred To Procedures Contact Contact New Request Diagnoses Pain in both lower extremities Joyce Hou MD Procedures BILATERAL DUPLEX SCAN OF ARTERY BY VASCULAR LAB [address] [place] [address] [address] [place], [place] [address] (Routine) Status Reason Specialty Diagnoses / Referred By Referred To Procedures Contact Contact New Request Vascular Surgery Diagnoses Pain in both lower extremities Joyce Hou Procedures TERESA MULTI LEVEL BY VASCULAR LAB [address] [place] [address] [address] [place] [address] (Routine) Status Reason Specialty Diagnoses / Procedures Referred By C ontact Referred To Contact Closed Cardiology Diagnoses CORREA (dyspnea on exertion) Joyce Hou MD Procedures ECHO ROUTINE W/DOPPLER COLOR Preferred Location: [facility] [address] [place] [address] [address] [place], [place] [address] Phone: Radiology Services (Routine) Status Reason Specialty Diagnoses / Referred By Referred To Procedures Contact Contact Closed Diagnostic Diagnoses CORREA (dyspnea on exertion) Joyce Hou MD Radiology Procedures NM MYOCARDIUM PERFUSION STRESS AND REST [address] [place] [address] 106 [place] [address] Reason for Visit Reason Comments New Patient Establish Care/Hospital Foll ow up (Routine) Status Reason Specialty Diagnoses / Referred By Referred To Procedures Contact Contact Closed IM-CARDIOVASCULAR Diagnoses 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 Rodriguez / blood pressure Onel Rodriguez Qiangjun, DISEASE / Procedures CONSULT/REFERRAL CARDIOLOGY NEW VISIT (FIRST TIME) [address] KATIE HAMMER Cardiology [facility] [address] [address] [address] Phone: [place], [place] [phone] [address] Encounter Details Date Type Department Care Team Description 10/22/2019 Office Visit [facility] Joyce Hou M D DOE (dyspnea on exertion) (Primary Dx); Cardiology- [address] Fatigue, unspecified type; [address] Essential hypertension; Drive, [address] BRANDT treated with BiPAP; [place], [place] [address] Morbid obesity; [address] Pain in both lower extremities [phone] Allergies Active Allergy Reactions Severity Noted Date Comments Lisinopril Other - See comments 10/22/2019 vertogo Penicillins Anaphylaxis 05/07/2006 documented as of this encounter (statuses as of 11/08/2019) Medications Medication Sig Dispensed Refills Start End [...] Overview: Hard to swallow ICD10 Diagnosis Term Wedger And Gluer Utility documented as of this encounter (statuses [...] documented in this encounter Progress Notes Joyce Hou MD - 10/22/2019 9:20 AM CDT CARDIOLOGY [...] file Gets together: Not on file Attends muslim service: Not on file Active member of [...] Heart Disease Mother Hypertension Mother Cancer Father [place] (myocardial infarction) Father Physical Examination: BP 122/72 [...] we can be of further assistance. Joyce Hou MD, FACC, [place] Manager Of Procurement, Division of Cardiology [facility] documented in this encounter Miscellaneous Notes Addendum Note - Joyce Hou MD - 10/22/2019 9:20 AM CDT Addended by: JOYCE HOU MD on: 11/08/2019 03:54 PM Modules accepted: Orders documented in this encounter Plan of Treatment [...] topic documented as of this encounter Results NM MYOCARDIUM PERFUSION STRESS AND REST (11/05/2019 9:43 AM CDT) Specimen Impressions Performed At PACS/VR/DOSE 1. Small region of reversibility within the anterior wall in the LAD distribution. Findings could represent m yocardial ischemia. 2. Large inferolateral wall fixed defect , reflecting sequela of prior infarct. There is probably some superimp osed diaphragmatic attenuation artifact as well. 3. Normal left ventricular function and motion. Preliminary Report Dictated by Resident: Marco Antonio Newsome I, Sammy Taylor MD., have reviewed this study and agree with the above report. Narrative Performed At EXAM: NM MYOCARDIUM PERFUSION STRESS AND REST PACS/VR/DOSE HISTORY: CP Chest pain, chronic, high pr ob of CAD 2-day study COMPARISON: None. PROCEDURE/TECHNIQUE: A 2 day protocol wa s utilized. Patient received a 0.4 mg Lexiscan infus ion followed by intravenous injection of 40 mCi of technetium 99m My oview. A gated SPECT scan was obtained. Patient was subsequently injected with 40 mCi of techn etium 99m Myoview for rest imaging. A gated SPECT scan was obt ained. FINDINGS: Pre Stress Test vitals are: BP?113/75?HR 93?Resp 18?O2 sat 95 Injection vitals are: BP?126/90?HR 109?R kim 20?O2 sat 98.? Recovery vitals are: BP?116/69?HR 111?Re sp 18?O2 sat 99. Small, mild, reversible perfusion defect is noted at the mid to basal anterior wall. Large fixed defect is not ed at the inferolateral wall, around the RCA and circumflex junction. The left ventricular wall motion is norm al after stress and rest. Ejection fraction at stress: 68% End-diastolic volume at stress: 76mL Ejection fraction rest: 61% End-diastolic volume at rest: 86mL Procedure Note [facility], Radiant Results Inft User - 2019 12:37 PM CDT EXAM: NM MYOCARDIUM PERFUSION STRESS AND REST HISTORY: CP Chest pain, chronic, high pr ob of CAD 2-day study COMPARISON: None. PROCEDURE/TECHNIQUE: A 2 day protocol wa s utilized. Patient received a 0.4 mg Lexiscan infus ion followed by intravenous injection of 40 mCi of technetium 99m My oview. A gated SPECT scan was obtained. Patient was subsequently injected with 4 0 mCi of technetium 99m Myoview for rest imaging. A gated SPECT scan was obt ained. FINDINGS: Pre Stress Test vitals are: BP?113/75?HR 93?Resp 18?O2 sat 95 Injection vitals are: BP?126/90?HR 109?R kim 20?O2 sat 98.? Recovery vitals are: BP?116/69?HR 111?Re sp 18?O2 sat 99. Small, mild, reversible perfusion defect is noted at the mid to basal anterior wall. Large fixed defect is not ed at the inferolateral wall, around the RCA and circumflex junction. The left ventricular wall motion is norm al after stress and rest. Ejection fraction at stress: 68% End-diastolic volume at stress: 76mL Ejection fraction rest: 61% End-diastolic volume at rest: 86mL IMPRESSION 1. Small region of reversibility within the anterior wall in the LAD distribution. Findings could represent m yocardial ischemia. 2. Large inferolateral wall fixed defect , reflecting sequela of prior infarct. There is probably some superimp osed diaphragmatic attenuation artifact as well. 3. Normal left ventricular function and motion. Preliminary Report Dictated by Resident: Marco Antonio Newsome I, Sammy Taylor MD., have reviewed is study and agree with the above report. Performing Organization Address City/State/Zipcode Phone Number PACS/VR/DOSE documented in this encounter Visit Diagnoses Diagnosis CORRAE (dyspnea on exertion) - Primary Other dyspnea and respiratory abnormalit y Fatigue, unspecified type Essential hypertension Unspecified essential hypertension BRANDT treated with BiPAP Morbid obesity Pain in both lower extremities documented in this encounter Insurance Payer Benefit Plan Subscriber ID Effective Dates Phone Address Type / Group [facility] [id number] 2017-Katheryn [phone] [address] PPO/POS [place] - OUT OF t 7 [id number] [place] [address] documented as of this encounter
--- OUTSIDE RECORDS SUMMARY | 2020-01-10 18:10 | XMS REPORT | Summary of Care ---
:1970 Author Organization [facility] Address [address] [place] [address] Care Team Providers Name Role Phone Abi Rodriguez Primary Care Provider Reason for Referral (Routine) Status Reason Specialty Diagnoses / Referred By Referred To Procedures Contact Contact New Request Cardiology Diagnoses Essential hypertension CORREA (dyspnea on exertion) Abnormal nuclear stress test Epifanio Hou MD Procedures Cardiac Cath Request for Service (Cardiology Use Only) [address] [place] [address] [place], [place] [address] Reason for Visit Reason Comments Results The patient is requesting a call with results for his stress test Encounter Details Date Type Department Care Team Description 11/08/2019 Telephone [facility] Epifanio Hou M D Results (The patient Cardiology- [address] is requesting a call [address] [place] [address] with results for his [address] stress test ) [place], [place] [address] [phone] Allergies Active Allergy Reactions Severity Noted Date [...] Overview: Hard to swallow ICD10 Diagnosis Term Mother Helper Utility documented as of this encounter (statuses [...] on filedocumented in this encounter Miscellaneous Notes Addendum Note - Epifanio Hou MD - 11/08/2019 11:13 PM CDT Addended by: EPIFANIO HOU MD on: 11/08/2019 11:13 PM Modules accepted: Orders elephone Encounter - Epifanio Hou MD - 11/08/2019 11:10 PM CDTNuclear stress test showed a small anterior reversible defect. Discussed with the patient. Given risk factors and symptoms, will proceed with [facility] for definitive diagnosis. Risk and benefit discussed indetail. elephone Encounter - Uma Cali RN - 11/08/2019 3:19 PM CDTMD notified patient of stress test results. elephone Encounter - Ranjana Rodriguez - 11/08/2019 8:30 AM CDTThe patient is requesting a call with results for his stress test documented in this encounter Plan of Treatment Name Type Priority Associated Diagnoses Order S chedule BASIC METABOLIC PANEL LAB Routine Essential hypertension 1 Occurrences starting (NA, K, CL, CO2, CORREA (dyspnea on 11/08/19 20 until GLUCOSE, BUN, exertion) 02/08/2020 CREATININE, CA) Abnormal nuclear stress test aPTT LAB Routine Essential hypert ension 1 Occurrences starting CORREA (dyspnea on 11/08/2019 u ntil exertion) 02/08/2020 Abnormal nuclear stress test PROTHROMBIN TIME / INR LAB Routine Essential hypertension 1 Occurrences starting CORREA (dyspnea on 11/08/2019 u ntil exertion) 02/08/2020 Abnormal nuclear stress test CBC WITHOUT DIFF LAB Routine Essential hyper tension 1 Occurrences starting CORREA (dyspnea on 11/08/2019 u ntil exertion) 02/06/2020 Abnormal nuclear stress test Health Maintenance Due Date Last Done Comments [...] filedocumented in this encounter Visit Diagnoses Diagnosis Essential hypertension - Primary Unspecified essential hypertension CORREA (dyspnea on exertion) Other dyspnea and respiratory abnormalit y Abnormal nuclear stress test Other nonspecific abnormal cardiovascula r system function study documented in this encounter Insurance Payer Benefit Plan Subscriber ID Effective Dates Phone Address Type / Group [facility] [id number] 2017-Katheryn [phone] [address] PPO/POS [place] - OUT OF t 7 [id number] [place] [address] documented as of this encounter
--- OUTSIDE RECORDS SUMMARY | 2020-01-10 18:10 | XMS REPORT | Summary of Care ---
:1970 Author Organization [facility] - [facility] Address [address] [place] [address] Care Team Providers Name Role Phone Abi Rodriguez Primary Care Provider Reason for Visit Reason Comments Appointment [facility] Encounter Details Date Type Department Care Team Description 11/17/2019 Telephone [facility] Abby Vann MD Appointment ([facility]) Cardiac Catheterizat ion Lab [address] [facility] Floor [address], [address] [address] Allergies Active Allergy Reactions Severity Noted Date Comments Lisinopril Other - See comments 10/22/2019 vertogo Penicillins Anaphylaxis 05/07/2006 documented as of this encounter (statuses as of 11/17/2019) Medications Medication Sig Dispensed Refills Start Date End Date Status olmesartan 40 mg tablet Take 40 mg by 0 Active mouth daily. chlorthalidone 25 mg Take 25 mg by 0 Active tablet mouth daily. terazosin 1 mg Take 1 capsule 30 capsule 2 10/22/2019 Active capsuleIndications: by mouth at Essential hypertension bedtime. 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 18 Overview: Both ears, mainly right ear drainage; ve ry painful, sometimes blood, lot of ringing Dizziness and giddiness 07/30/2006 01/28/2018 Dyspepsia and other specified disorders of function of stoma ch 07/30/2006 01/28/2018 Overview: Upset stomach Dysphagia 07/30/2006 01/28/2018 Overview: Hard to swallow ICD10 Diagnosis Term Wink Cutter 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 Left a message for the patient to call the office. documented in this encounter Plan of Treatment Date Type Specialty Care Team Description 11/19/2019 Appointment Vascular Sonography Angel Fuchs MD [address] [place] [address] Tech, Suzy Cardio Vascular 11/19/2019 Appointment Vascular Sonography Angel Fuchs MD [address] [place] [address] [phone] Tech, Adc Cardio Vascular Health Maintenance Due Date Last Done Comments Rosetta,Tdap,and Td Vaccines (1 - 1988 Tdap) COLON [...] Phone Address Type / Group BCBS OF [facility] [id number] 2017-Katheryn [phone] [address] PPO/POS [place] - OUT OF t 7 [id number] [place] [address] documented as of this encounter
--- OUTSIDE RECORDS SUMMARY | 2020-01-10 18:10 | XMS REPORT | Summary of Care ---
:1970 Author Organization [facility] Address [address] [place] [address] Care Team Providers Name Role Phone Abi Rodriguez Primary Care Provider Encounter Details Date Type Department Care Team Description [facility]2019 [facility] Joyce Vann MD [address] [place] [address] [place] [address] [phone] Allergies Active Allergy Reactions Severity Noted Date Comments Lisinopril Other - See comments 10/22/2019 vertogo Penicillins Anaphylaxis 05/07/2006 documented as of this encounter (statuses as of 11/26/2019) Medications Medication Sig Dispensed Refills Start Date End Date Status olmesartan 40 mg tablet Take 40 mg by 0 Active mouth daily. chlorthalidone 25 mg Take 25 mg by 0 Active tablet mouth daily. terazosin 1 mg Take 1 capsule 30 capsule 2 10/22/2019 Active capsuleIndications: by mouth at Essential hypertension bedtime. 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 Overview: Both ears, mainly right ear drainage; ve ry painful, sometimes blood, lot of ringing Dizziness and giddiness 07/30/2006 01/28/2018 Dyspepsia and other specified disorders of function of stoma ch 07/30/2006 01/28/2018 Overview: Upset stomach Dysphagia 07/30/2006 01/28/2018 Overview: Hard to swallow ICD10 Diagnosis Term Barrel Tester Utility documented as of this encounter (statuses as of 11/26/2019) Social History Tobacco Use Types Packs/Day Years Used Date Never Smoker 10 Smokeless Tobacco: Current User Chew, Snuff Alcohol Use Drinks/Week oz/Week Comments Yes 3-4 times a year Sex Assigned at Date Recorded Not on file COVID-19 Exposure Response Date Recorded In the last month, have you been in contact with No / Unsure 11/19/2019 2:04 PM CDT someone who was confirmed or suspected to have Coronavirus / COVID-19? documented as of this encounter Last Filed Vital Signs Not on filedocumented in this encounter Miscellaneous Notes Telephone Encounter - Reina Ho RN - 11/26/2019 3:23 PM CDTMessage sent to patient with number documented in this encounter Plan of Treatment Date Type Specialty Care Team Description 11/29/2019 Laboratory Only Clinical Medical Laboratory Only, Adc Test 12/03/2019 Appointment Cardiac Heel Seat Pounder Outpt-Elizabeth, C[facility] Health Maintenance Due Date Last Done Comments [...] Phone Address Type / Group [facility] [id number] 2017-Katheryn [phone] [address] PPO/POS [place] - OUT OF t 7 [id number] [place] [address] documented as of this encounter
--- OUTSIDE RECORDS SUMMARY | 2020-01-10 18:10 | XMS REPORT | Summary of Care ---
:1970 Author Organization [facility] Address [address] [place] [address] Care Team Providers Name Role Phone Abi Rodriguez Primary Care Provider Encounter Details Date Type Department Care Team Description 11/19/2019 Orders Only [facility] Doctor Unassigned, No [address] [facility] [place] [address] [address] [place] [address] Allergies Active Allergy Reactions Severity Noted Date Comments Lisinopril Other - See comments 10/22/2019 vertogo Penicillins Anaphylaxis 05/07/2006 documented as of this encounter (statuses as of 11/19/2019) Medications Medication Sig Dispensed Refills Start Date End Date Status olmesartan 40 mg tablet Take 40 mg by 0 Active mouth daily. chlorthalidone 25 mg Take 25 mg by 0 Active tablet mouth daily. terazosin 1 mg Take 1 capsule 30 capsule 2 10/22/2019 Active capsuleIndications: by mouth at Essential hypertension bedtime. 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 18 Overview: Both ears, mainly right ear drainage; ve ry painful, sometimes blood, lot of ringing Dizziness and giddiness 07/30/2006 01/28/2018 Dyspepsia and other specified disorders of function of stoma ch 07/30/2006 01/28/2018 Overview: Upset stomach Dysphagia 07/30/2006 01/28/2018 Overview: Hard to swallow ICD10 Diagnosis Term Horse Trekking Guide Utility documented as of this encounter (statuses as of 11/19/2019) Social History Tobacco Use Types Packs/Day Years [...] Care Team Description 11/19/2019 Appointment Vascular Sonography Jef, Send onel Sexton MD [address] [address] [place] [phone] Suzy Ramachandran Cardio Vascular 11/29/2019 Laboratory Only Clinical Medical Only, Adc Test Laboratory 12/03/2019 Appointment Cardiac Pig Caster Outpt-Elizabeth, Ccl Health Maintenance Due Date Last [...] Name Priority Date/Time Associated Diagnosis Comme nts CONSENT/REFUSAL FOR Routine 11/19/2019 2:01 PM DIAGNOSIS AND TREATMENT CDT ASSIGNMENT OF BENEFITS Routine 11/19/2019 2:01 PM CDT documented in this encounter Results Not on filedocumented in this encounter Insurance Payer Benefit Plan Subscriber ID Effective Dates Phone Address Type / Group BCBS OF [employer] [place] [id number] 2017-Katheryn [phone] [address] PPO/POS [place] - OUT OF t 7 [id number] [place] [address] documented as of this encounter
--- OUTSIDE RECORDS SUMMARY | 2020-01-10 18:10 | XMS REPORT | Summary of Care ---
:1970 Author Organization [facility] - [facility] Address [address] [place] [address] Care Team Providers Name Role Phone Abi Rodriguez Primary Care Provider Reason for Visit Reason Comments Pre-Visit Planning Encounter Details Date Type Department Care Team Description 11/25/2019 Telephone [facility] [place] Abby Vann MD Pre-Visit Planning Cardiac Catheterization [address] [place] [address] Lab [facility], [address]th [address] [place] [address] 712 [facility] 6B, 6. [address] [place] [address] [phone] Allergies Active Allergy Reactions Severity Noted Date Comments Lisinopril Other - See comments 10/22/2019 vertogo Penicillins Anaphylaxis 05/07/2006 documented as of this encounter (statuses as of 11/25/2019) Medications Medication Sig Dispensed Refills Start Date End Date Status olmesartan 40 mg tablet Take 40 mg by 0 Active mouth daily. chlorthalidone 25 mg Take 25 mg by 0 Active tablet mouth daily. terazosin 1 mg Take 1 capsule 30 capsule 2 10/22/2019 Active capsuleIndications: by mouth at Essential hypertension bedtime. 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 18 Overview: Both ears, mainly right ear drainage; ve ry painful, sometimes blood, lot of ringing Dizziness and giddiness 07/30/2006 01/28/2018 Dyspepsia and other specified disorders of function of stoma ch 07/30/2006 01/28/2018 Overview: Upset stomach Dysphagia 07/30/2006 01/28/2018 Overview: Hard to swallow ICD10 Diagnosis Term Saw Operator Utility documented as of this encounter (statuses as of 11/25/2019) Social History Tobacco Use Types Packs/Day Years [...] this encounter Miscellaneous Notes Telephone Encounter - Arlene Shah RN - 11/25/2019 5:06 PM CDTUT CARDIAC CATH PRE-CALL INSTRUCTIONS Cardiac Cath Instructions were sent to patient via: Other phone Your physician has determined that you need to undergo a(n) Left heart cath procedure. Listed below are some instructions for you to follow prior to the procedure. Do not eat or drink anything after midnight the night before the procedure, except for enough water to take your medications if so directed. For Carotid stenting procedures, do not take blood pressure medications the morning prior to the procedure. For Carotid angiogram procedures, do not stop taking your blood pressure medications. Take all medications except do not take metformin (Glucophage) 2 days prior to the procedure and do not take insulin or furosemide (lasix) the day of the procedure. If you are on blood thinners stop taking them 5 days prior to the procedure, unless otherwise instructed. If you are allergic to iodine or shellfish, take pre-treatment medications as directed. Please call your referring physician for prescription. Bring a list of all current medications. Bring one adult family member or friend with you to drive you home, as you will be unable to drive for 48 hours after the procedure. Due to limited space and patient privacy, only one (1) visitor is permitted with the patient while they are recovering in the recovery area. No children under the age of 14 years will be allowed in recovery area. The visitor entrance to the public parking garage is located at [facility] and [address] [place] [address]. Please bring your ticket with you, only one token will be issued. There may be a possibility of hospital admission or late evening discharge; therefore, bring leisure reading and an overnight bag. On the day of your procedure, come directly to the Cardiac Meteorological Aide medical receptionist assistant desk, located on the fourth floor of the [facility] ([facility] You will be escorted to the Cardiac Cath recovery room. Please call the Cardiac Meteorological Aide at if you have any questions regarding your procedure. Date of Procedure: 12/03/2019 Time of Procedure: For peripheral procedures, have you had an TERESA or arterial duplex? not applicable For ASD/PFO procedures, have you had:Not Applicable Instructions given to patient: yes Patient provided with preferred teaching of verbal information on 11/25/2019. Shows readiness to learn. Verbal instruction teaching provided. Individual is able to read and verbalizes understanding of teaching provided. documented in this encounter Plan of Treatment Date Type Specialty Care Team Description 11/29/2019 Laboratory Only Clinical Medical Laboratory Only, Adc Test 12/03/2019 Appointment Cardiac Meteorological Aide Outpt-Elizabeth, Ccl Health Maintenance Due Date Last [...] Phone Address Type / Group BCBS OF [facility] [id number] 2017-Katheryn [phone] [address] PPO/POS [place] - OUT OF 7 [id number] [place] [address] documented as of this encounter
--- OUTSIDE RECORDS SUMMARY | 2020-01-10 18:10 | XMS REPORT | Summary of Care ---
:1970 Author Organization [facility] - [facility] Address [address] [place] [address] Care Team Providers Name Role Phone Abi Rodriguez Primary Care Provider Reason for Referral (Routine) Status Reason Specialty Diagnoses / Referred By Referred To Procedures Contact Contact New Request Otolaryngology Diagnoses Right ear pain Epifanio Hou, Procedures CONSULT/REFERRAL ENT [address] [facility] [address] [place] [address] Reason for Visit Reason Comments Procedure [facility] Encounter Details Date Type Department Care Team Description 11/17/2019 Telephone [facility] Abby Hou MD Procedure ([facility]) Cardiac Catheterizat ion Lab 146 [facility], [address] Floor [address] 712 [facility] 6B, [address]. [address] [place] [address] [place], [place] [address] Allergies Active Allergy Reactions Severity Noted Date Comments Lisinopril Other - See comments 10/22/2019 vertogo Penicillins Anaphylaxis 05/07/2006 documented as of this encounter (statuses as of 11/23/2019) Medications Medication Sig Dispensed Refills Start Date End Date Status olmesartan 40 mg tablet Take 40 mg by 0 Active mouth daily. chlorthalidone 25 mg Take 25 mg by 0 Active tablet mouth daily. terazosin 1 mg Take 1 capsule 30 capsule 2 10/22/2019 Active capsuleIndications: by mouth at Essential hypertension bedtime. 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 18 Overview: Both ears, mainly right ear drainage; ve ry painful, sometimes blood, lot of ringing Dizziness and giddiness 07/30/2006 01/28/2018 Dyspepsia and other specified disorders of function of stoma ch 07/30/2006 01/28/2018 Overview: Upset stomach Dysphagia 07/30/2006 01/28/2018 Overview: Hard to swallow ICD10 Diagnosis Term Glove Machine Operator Utility documented as of this encounter (statuses as of 11/23/2019) Social History Tobacco Use Types Packs/Day Years [...] Addendum Note - Epifanio Hou MD - 11/23/2019 12:49 PM CDT Addended by: EPIFANIO HOU MD on: 11/23/2019 12:49 PM Modules accepted: Orders elephone Encounter - Lina Patricia - 11/17/2019 10:11 AM CDTPatient called and confirmed that 12/03/19 is acceptable and covid is scheduled for 11/29/19. Informedthat a nurse will call 2-3 days prior with instructions and that a PSS will call the business day prior with arrival time. Info mailed out. documented in this encounter Plan of Treatment Date Type Specialty Care Team Description 11/29/2019 Laboratory Only Clinical Medical Laboratory Only, Adc Test 12/03/2019 Appointment Cardiac Director Of Medical Education Outpt-Elizabeth, Ccl Health Maintenance Due Date Last [...] filedocumented in this encounter Visit Diagnoses Diagnosis Right ear pain - Primary Otalgia, unspecified documented in this encounter Insurance Payer Benefit Plan Subscriber ID Effective Dates Phone Address Type / Group [facility] [id number] 2017-Katheryn [phone] [address] PPO/POS [place] - OUT OF t 7 [id number] [place] [address] documented as of this encounter
--- OUTSIDE RECORDS SUMMARY | 2020-01-10 18:10 | XMS REPORT | Summary of Care ---
:1970 Author Organization [facility] - [facility] Address [address] [place] [address] Care Team Providers Name Role Phone Abi Rodriguez Primary Care Provider Reason for Visit Reason Comments Procedure [facility] Encounter Details Date Type Department Care Team Description 11/17/2019 Telephone [facility] Abby Vann MD Procedure ([facility]) Cardiac Catheterizat ion Lab 146 [facility], [address] Floor [address], [address] [address] Allergies Active Allergy Reactions [...] Overview: Hard to swallow ICD10 Diagnosis Term Security Control Center Operator Utility documented as of this encounter [...] this encounter Miscellaneous Notes Telephone Encounter - Lina Patricia - 11/17/2019 10:11 [...] Fuchs MD [address] [place] [address] [place] [address] Tech, Adc Cardio Vascular 11/19/2019 Appointment Vascular Sonography Angel Fuchs MD [address] [place] [address] [phone] Suzy Ramachandran Cardio Vascular 11/29/2019 Laboratory Only Clinical Medical Only, Suzy Test Laboratory 12/03/2019 Appointment Cardiac Warehouse Man Outpt-Lucien Johnson Health Maintenance Due Date Last Done Comments [...] Phone Address Type / Group BCBS OF [facility] [id number] 2017-Katheryn [phone] [address] PPO/POS [place] - OUT OF t 7 [id number] [place] [address] documented as of this encounter
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
--- OUTSIDE RECORDS SUMMARY | 2020-01-10 18:11 | XMS REPORT | Summary of Care ---
:1970 Author Organization [facility] - Health Address [address] [place] [address] Care Team Providers Name Role Phone Abi Rodriguez Primary Care Provider Encounter Details Date Type Department Care Team Description 11/29/2019 Orders Only [facility] Doctor Unassigned, No [address] [place] [address] [address] [place] [address] Allergies Active Allergy Reactions Severity Noted Date [...] Overview: Hard to swallow ICD10 Diagnosis Term Sales And Marketing Analyst Utility documented as of this encounter (statuses [...] Date Type Specialty Care Team Description 11/29/2019 Trauma Counsellor Visit Phlebotomy Joyce Vann MD [address] [place] [address] [address] [place], [place] [phone] Arrived [facility] Lab Main 12/03/2019 Appointment Cardiac Electronic Imaging System Operator Outpt-Elizabeth, Lucien Health Maintenance Due Date Last Done Comments [...] Name Priority Date/Time Associated Diagnosis Comme nts ASSIGNMENT OF BENEFITS Routine 11/29/2019 9:16 AM CDT documented in this encounter Results Not on filedocumented in this encounter Insurance Payer Benefit Plan Subscriber ID Effective Dates Phone Address Type / Group [employer] [place] [id number] 2017-Katheryn [phone] [address] PPO/POS [place] - OUT OF t 7 [id number] [place] [address] documented as of this encounter
--- OUTSIDE RECORDS SUMMARY | 2020-01-10 18:11 | XMS REPORT | Summary of Care ---
:1970 Author Organization [facility] - [facility] Address [address] [place] [address] Care Team Providers Name Role Phone Abi Rodriguez Primary Care Provider Encounter Details Date Type Department Care Team Description [facility]/26/2019 [facility] Vann MD [address] [place] [address] [place] [address] [phone] Allergies Active Allergy Reactions Severity Noted Date Comments Lisinopril Other - See comments 10/22/2019 vertogo Penicillins Anaphylaxis 05/07/2006 documented as of this encounter (statuses as of 11/30/2019) Medications Medication Sig Dispensed Refills Start Date End Date Status olmesartan 40 mg tablet Take 40 mg by 0 Active mouth daily. chlorthalidone 25 mg Take 25 mg by 0 Active tablet mouth daily. terazosin 1 mg Take 1 capsule 30 capsule 2 10/22/2019 Active capsuleIndications: by mouth at Essential hypertension bedtime. 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 18 Overview: Both ears, mainly right ear drainage; ve ry painful, sometimes blood, lot of ringing Dizziness and giddiness 07/30/2006 01/28/2018 Dyspepsia and other specified disorders of function of stoma ch 07/30/2006 01/28/2018 Overview: Upset stomach Dysphagia 07/30/2006 01/28/2018 Overview: Hard to swallow ICD10 Diagnosis Term Epic [employer] Utility documented as of this encounter (statuses as of 11/30/2019) Social History Tobacco Use Types Packs/Day Years [...] Telephone Encounter - Reina Ho RN - 11/30/2019 4:48 PM CDTMessage sent to pt Telephone Encounter - Joyce Vann MD - 11/26/2019 3:39 PM CDTI believe I already informed him that the vascular testings are normal. No PAD. documented in this encounter Plan of Treatment Date Type Specialty Care Team Description 12/03/2019 Appointment Cardiac Carbon Printer Joyce Vann MD [address] [facility] [address] [place] [address] Outpt-Luicen Johnson 12/09/2019 Office Visit Otolaryngology Ion Fajardo MD [address] [facility] [facility] [address] [place], [place] [address] Health Maintenance Due Date Last Done Comments [...] Results Not on filedocumented in this encounter Additional Health Concerns Infection Onset Date Last Indicated Resolved Time COVID-19 Rule Out 11/29/2019 11/29/2019 11/29/2019 9: 46 PM CDT documented as of this encounter Insurance Payer Benefit Plan Subscriber ID Effective Dates Phone Address Type / Group BCBS OF [facility] [id number] 2017-Katheryn [phone] [address] PPO/POS [place] - OUT OF t 7 [id number] [place] [address] documented as of this encounter
--- OUTSIDE RECORDS SUMMARY | 2020-01-10 18:11 | XMS REPORT | Summary of Care ---
:1970 Author Organization [facility] - [facility] Address [address] [place] [address] Care Team Providers Name Role Phone Abi Rodriguez Primary Care Provider Encounter Details Date Type Department Care Team Description 11/26/2019 [facility], Joyce Vann MD [address] [place] [address] [place] [address] [phone] Allergies Active Allergy Reactions Severity Noted Date [...] Overview: Hard to swallow ICD10 Diagnosis Term Tableau Analyst Utility documented as of this encounter [...] Laboratory Only, Adc Test 12/03/2019 Appointment Cardiac Service Writer Advisor Outpt-Elizabeth, Ccl Health Maintenance Due Date Last [...] Effective Dates Phone Address Type / Group [facility] [id number] 2017-Katheryn [phone] [address] PPO/POS [place] - OUT OF t 7 [id number] [place] [address] documented as of this encounter
--- OUTSIDE RECORDS SUMMARY | 2020-01-10 18:11 | XMS REPORT | Summary of Care ---
:1970 Author Organization [facility] Address [address] [place] [address] Care Team Providers Name Role Phone Abi Rodriguez Primary Care Provider Reason for Visit Reason Comments LAB WORK Auth/Cert Status Reason Specialty Diagnoses / Referred By Referred To Procedures Contact Contact Clinical Medical Diagnoses COVID-19 Adc Lab Laboratory Procedures COVID-19 (ID NOW RAPID TESTING) [address] [place] [address] Encounter Details Date Type Department Care Team Description 11/29/2019 Master Fire Control Technician Visit [facility] Joyce Vann MD [address] [facility] [address] [place] [address] Essential hypertension; Professional Office Pob, Adc Lab Main CORREA (dyspnea on exertion); Building Phlebotomy Abnormal nuclear stress test Lab Professional Office Building [address] [facility] [address] [place] [address] Allergies Active Allergy Reactions Severity [...] Overview: Hard to swallow ICD10 Diagnosis Term Cryptologic Supervisor Utility documented as of this encounter [...] in this encounter Nursing Notes Autumn Norman N - 11/29/2019 10:15 AM CDT Venipuncture collection performed by clean technique on the left forearm(s). Total of 1 attempts were made. Slight pressure and a bandage/dressing were applied to the site(s). The patient experienced no complications. The following specimens were and sent to [facility] laboratories per lab order on 11/29/19: 1 LT BLUE 1 SST RED 1 LAV PPT DK GREEN (LiHep) DK GREEN (SodH) MAGDALENO DK BLUE (K2) DK BLUE (S) ACD Blood Culture NIPT/NTD documented in this encounter Plan of Treatment Date Type Specialty Care Team Description 12/03/2019 Appointment Cardiac Director Payer Outpt-Lucien Johnson Health Maintenance Due Date Last [...] this encounter Visit Diagnoses Diagnosis Essential hypertension Unspecified essential hypertension CORREA (dyspnea [...] Effective Dates Phone [facility] Type / [facility] [id number] 2017-Katheryn [phone] [address] PPO/POS [place] - OUT OF t 7 [id number] [place] [address] documented as of this encounter
--- OUTSIDE RECORDS SUMMARY | 2020-01-10 18:12 | XMS REPORT | Summary of Care ---
:1970 Author Organization [facility] Address [address] [place] [id number] Care Team Providers Name Role Phone Abi Rodriguez Primary Care Provider Reason for Visit (Routine) Status Reason Specialty Diagnoses / Procedures Referred By C ontact Referred To Contact Closed Cardiology Diagnoses Essential hypertension CORREA (dyspnea on exertion) Abnormal nuclear stress test Joyce Vann MD Procedures Cardiac Cath Request for Service (Cardiology Use Only) [address] [facility] [address] [place], [place] [address] Phone: Encounter Details Date Type Department Care Team Description 12/03/2019 [facility] Heart Joyce Vann MD [address] [facility] [address] [place] [phone] CORREA (dyspnea on [place] [address], [place] [id number] exertion) (Primary Catheterization Lab Outpt-Elizabeth, Ccl Dx) [facility], 6th Floor [address] [facility] [address] [place] [address] Allergies Active Allergy Reactions Severity Noted Date Comments Lisinopril Other - See comments 10/22/2019 vertogo Penicillins Anaphylaxis 05/07/2006 documented as of this encounter (statuses as of 12/04/2019) Medications Medication Sig Dispensed Refills Start Date End Date Status olmesartan 40 mg tablet Take 40 mg by 0 Active mouth daily. chlorthalidone 25 mg Take 25 mg by 0 Active tablet mouth daily. terazosin 1 mg Take 1 capsule 30 capsule 2 10/22/2019 Active capsuleIndications: by mouth at Essential hypertension bedtime. 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 18 Overview: Both ears, mainly right ear drainage; ve ry painful, sometimes blood, lot of ringing Dizziness and giddiness 07/30/2006 01/28/2018 Dyspepsia and other specified disorders of function of stoma ch 07/30/2006 01/28/2018 Overview: Upset stomach Dysphagia 07/30/2006 01/28/2018 Overview: Hard to swallow ICD10 Diagnosis Term Director Veterinary Utility documented as of this encounter (statuses as of 12/04/2019) Social History Tobacco Use Types Packs/Day Years Used Date Never Smoker 10 Smokeless Tobacco: Current User Chew, Snuff Alcohol Use Drinks/Week oz/Week Comments Yes 3-4 times a year Sex Assigned at Date Recorded Not on file COVID-19 Exposure Response Date Recorded In the last month, have you been in contact with No / Unsure 12/03/2019 6:38 AM CDT someone who was confirmed or suspected to have Coronavirus / COVID-19? documented as of this encounter Last Filed Vital Signs Vital Sign Reading Time Taken Comments Blood Pressure 126/74 12/03/2019 11:43 AM CDT standing Pulse 87 12/03/2019 11:43 AM CDT Temperature - - Respiratory Rate 17 12/03/2019 11:43 AM CDT Oxygen Saturation 99% 12/03/2019 11:43 AM CDT Inhaled Oxygen Concentration - - Weight 142.9 kg (315 lb) 12/03/2019 8:16 AM CDT Height 175.3 cm (5' 9") 12/03/2019 8:16 AM CDT Body Mass Index 46.52 12/03/2019 8:16 AM CDT documented in this encounter Discharge Instructions Arlene Torres RN - 12/03/2019 Patient Discharge Instructions Follow instructions as indicated below: Discharge Orders Activity As Tolerated Lift nothing heavier than 5 pounds for 2 weeks Do not operate a motorized vehicle for 2 days Keep area dry and clean Do not remove band-aid for the first 24 hours after procedure Do not soak in bathtub or hot tub for the first 24 hours after procedure Watch for bleeding, swelling, pain, fever, and any discharge call the Business Systems Analyst (during hours) Order Comments: At nights, weekends or holidays, call the [facility] hospital buttonhole machine operator at . Ask the buttonhole machine operator to page the Cardiac Cath Fellow who is on-call. Avoid making important life decisions for the first 48 hours No strenuous activity for 72 hours Drink plenty of water Continue previous outpatient medications Hold Metformin for 48 hours Bottom bunk pass for 7 days after EP Procedure Medically unassigned for 7 days Order Comments: Medically unassigned for 7 days. Resume pre procedure diet Order Comments: Resume pre procedure diet Weight: In general, sudden weight gains or losses should be reported to your provider. Cardiac patients should weigh daily and notify their provider for a weight gain of 3 pounds per day or 5 pounds per week. Follow-up appointments: To schedule other appointments, call the [facility] Health Access Center at or . You may also make appointments online by going to [email or web address] and follow the RequestAppointment quicklink. Take Home Medications These are medications ordered for you by your healthcare provider. Do not take any other medicationsor supplements unless advised by your healthcare provider. Patient's Medications START taking these medications No medications on file CONTINUE taking these medications which have NOT CHANGED CHLORTHALIDONE 25 MG TABLET Take 25 mg by mouth daily. OLMESARTAN 40 MG TABLET Take 40 mg by mouth daily. TERAZOSIN 1 MG CAPSULE Take 1 capsule by mouth at bedtime. START taking Modified Medications as Prescribed No medications on file STOP taking these medications No medications on file Medications: Your doctor may prescribe medicine to prevent blood clots. You may also have to take medicine to prevent chest pain. Take your medicine as usual after the procedure unless your doctor has told you to stop. Any changes in your medicine's schedule will be explained to you. For questions regarding follow-up instructions call the [facility] Access Center at or For worsening symptoms/changing condition/problems or questions: During normal business hours call the [facility] Cardiac Business Systems Analyst at . At nights, weekends or holidays, call the [facility] hospital buttonhole machine operator at . Ask the buttonhole machine operator to page the Cardiac Cath Fellow who is on-call. Emergency: Go to the closest emergency room or call 291 Signs and Symptoms of a Problem: Call your doctor if you have any of the following problems: Fever Swelling, pain, redness around the puncture site Foul smell or drainage from the site Odd changes in sensations, like numbness, tingling, coldness or pain in the arm or leg where the catheter was inserted. If you start Bleeding: Apply pressure to the site. If the bleeding continues, have someone call your doctor and make arrangements to see him/her. Please follow the doctor's directions. Our Goal is to Always Provide You with Very Good Care! We will be mailing you a survey, Please complete and return at your convenience. Thank You TOBACCO AVOIDANCE Exposure to tobacco either from smoking or from second hand (environmental) smoke or smokeless tobacco (snuff) is damaging to your health. This information is to encourage everyone to avoid tobacco exposure. It is recommended that you: ? If you smoke or use smokeless tobacco, we encourage you to quit. ? If you have already quit smoking, continue your good work! ? If you do not smoke or use smokeless tobacco, do not start. ? Avoid secondhand smoke. Additional Resources You may want to contact these organizations for further information on smoking and how to quit. [place] [employer], http://www.lungusa.org/stop-smoking/ [place] [employer], http://www.cancer.org/Healthy/StayAwayfromTobacco/index [place] [employer], http://www.heart.org/HEARTORG/GettingHealthy/QuitSmoking/Quit-Smoking_[facility] _001085_SubHomePage.jsp documented in this encounter H&P Notes Phuong Cruz MD - 12/03/2019 7:00 AM CDT Cardiac Catheterization / PTCA History and Physical Date: 12/03/2019 TIME: 7:44 AM PATIENT NAME: Yuri Crawford III Age: [age] year old Race: /White SEX: male Referring Physician: Joyce Vann MD Indication of Cardiac Catheterization: Dyspnea on exertion NYHA class III with positive stress test HPI: Yuri Crawford is a 49 year old male with PMHx of HTN, BRANDT on CPAP, CKD stage II/III who presented with an exertional SOB NYHA III class and positive stress test for an elective left heat cath and coronary angiography. Mr. Crawford follows up with Dr. Vann who saw him in the clinic on for CORREA with walking between room that started 1.5 years ago (before that, patient reported being able to walk as much as he wanted) along with intermittent exertional chest heaviness. Denied any leg swelling, orthopnea, PND, orloss of consciousness. MPI came back positive as detailed below. COVID-19 testing is negative from 11/29/2019. Current Status: [place] [employer] Functional Class: III ASA Status: III [place] Angina Heart Class: III PCI CHECKLIST History of prior PCI?: No Previous Coronary Artery Bypass Graph: No. IV contrast used within the past 72 hours?: No Did the patient have a Stroke or TIA ?: No Candidacy for NUSRAT Is the patient anemic?: Yes Major surgery in the past month or in the next year?: No History of clinically overt or suspected bleeding?: No Is the patient on chronic anticoagulation (e.g. Warfarin, NOAC)?: No. History of medication non-adherence?: No Is the patient is willing to afford prolonged dual antiplatelet therapy if uninsured?: Yes Allergies Yuri Crawford III is allergic to lisinopril and penicillin [penicillins].. Contrast allergy?: No. Aspirin allergy?: No. Intolerance to Aspirin due to peptic ulcer disease?: No Heparin allergy (HIT)?: No. Latex allergy?: No. Medications: Current Outpatient Medications Medication Sig Dispense Refill chlorthalidone 25 mg tablet Take 25 mg by mouth daily. olmesartan 40 mg tablet Take 40 mg by mouth daily. terazosin 1 mg capsule Take 1 capsule by mouth at bedtime. 30 capsule 2 No current facility-administered medications for this encounter. Did the patient take aspirin with in the past 24 hours?: No. ASA 325 mg given this am Did the patient take clopidogrel, prasugrel or ticagrelor within 2the past 24 hours?: No Did the patient take metformin within the past 24 hours?: No Did the patient take sildenafil (or other PDE5 inhibitor) within the past 24 hours?: No Did the patient receive LMWH within the past 12hours?: No. Is the patient on chronic anticoagulation?: No. Informed Consent: Did the patient agree to emergent CABG?: Yes Is the patient DNR or DNI?: No. Sedation, Anesthesia and Analgesia: Are ASA and Mallampati Class documented? Yes Is there any contraindication to sedation present? No Current History: Mr. Crawford has a past medical history of Hearing loss, HTN (hypertension), Hypogonadism in male, andOSA (obstructive sleep apnea). He has a past surgical history that includes mastoidectomy (2001) and cholecystectomy. He is allergic to lisinopril and penicillin [penicillins]. He reports that he has never smoked. His smokeless tobacco use includes chew and snuff. He reports current alcohol use. He has no history on file for drug. Current Medications: Patient's Medications START taking these medications No medications on file CONTINUE taking these medications which have NOT CHANGED CHLORTHALIDONE 25 MG TABLET Take 25 mg by mouth daily. OLMESARTAN 40 MG TABLET Take 40 mg by mouth daily. TERAZOSIN 1 MG CAPSULE Take 1 capsule by mouth at bedtime. START taking Modified Medications as Prescribed No medications on file STOP taking these medications No medications on file Physical Exam: Vitals: Mr. Crawford height is 5' 9" (1.753 m) and weight is 315 lb (142.9 kg). His blood pressure is112/69. His respiration is 16 and oxygen saturation is 95%. BP 112/69 | Resp 16 | Ht 5' 9" (1.753 m) | Wt 315 lb (142.9 kg) | SpO2 95% | BMI 46.52 kg/m General: alert and oriented x 4 (person, place, date/time and situation); no apparent distress HEENT: pupils equal, round, reactive to light; extraocular movements intact; oropharynx clear; moistmucous membranes, normocephalic atraumatic Neck: supple, no lymphadenopathy, no bruits, no JVD, full range of motion Lungs: clear to auscultation bilaterally Cardio: S1, S2 normal, regular; no murmurs, rubs or gallops Abdomen: soft; non-tender; non-distended; normoactive bowel sounds Extremities: no clubbing, cyanosis, or edema Skin: no rashes Amarjit's Test: Normal LABS / DATA: HGB (g/dL) Date Value 11/29/2019 11.3 (L) HCT (%) Date Value 11/29/2019 37.5 (L) K (mmol/L) Date Value 11/29/2019 5.1 (H) CREATININE (mg/dL) Date Value 11/29/2019 1.39 (H) No results found for: PATPT No results found for: PTSEC APTT Patient (Seconds) Date Value 11/29/2019 26 eGFR Calculation (Non-) (mL/min/1.73m2) Date Value 11/29/2019 54.1 eGFR Calculation () (mL/min/1.73m2) Date Value 11/29/2019 65.6 TTE: Done on 10/28/2019: Left Ventricle The left ventricle is normal in size. There is mild concentric left ventricular hypertrophy. Left ventricular systolic function is normal. Ejection Fraction = 60-65%. Diastolic dysfunction. The left ventricular wall motion is normal. Right Ventricle The right ventricle is normal in size and function. There is normal right ventricular wall thickness. Atria The left atrial size is normal. Right atrial size is normal. Mitral Valve The mitral valve is normal. Tricuspid Valve The tricuspid valve is normal. Insufficient Tricuspid regurgitation jet to estimate RVSP. IVC not visualized. Aortic Valve The aortic valve is normal. Pulmonic Valve The pulmonic valve is normal. Great Vessels The aortic root is normal size. Pericardium/Pleural There is no pericardial effusion. The pericardium appears normal. Interpretation Summary A two-dimensional transthoracic echocardiogram with M-mode and Doppler was performed. The study was technically limited. There is no comparison study available. There is mild concentric left ventricular hypertrophy. Diastolic dysfunction. Ejection Fraction = 60-65%. The left ventricular wall motion is normal. Insufficient Tricuspid regurgitation jet to estimate RVSP. MPI: Done on 11/05/2019: IMPRESSION 1. Small region of reversibility within the anterior wall in the LAD distribution. Findings could represent myocardial ischemia. 2. Large inferolateral wall fixed defect, reflecting sequela of prior infarct. There is probably some superimposed diaphragmatic attenuation artifact as well. 3. Normal left ventricular function and motion. Impressions: - CORREA NYHA class III with positive MPI presenting for an elective left heart catheterization + coronary angiography. +/- PCI- HTN - CKD stage II/III - BRANDT on CPAP Procedures: - Planned procedure: Left heart catheterization + coronary angiography. +/- PCI - Access: Right Radial Artery - Contrast: Visipaque - Consent obtained (<72 hours): Yes - ASA loading with 325 mg PO once was given this am before the procedure. The sedation pre-assessment was discussed and I concurred with the plan for sedation or anesthesia as captured in the flowsheet pre-assessment rows by the nurse. The benefits, alternatives, and risks including but not limited to pain, bleeding, infection, damageto the heart, lung, and/or blood vessels requiring surgery, kidney failure, heart attack, stroke, ordeath were discussed in detail with the patient. The patient expressed understanding and are agreeable to proceed with the recommendations. Discussed with Dr. Basilio. Phuong Cruz MD Vice President For Philanthropy, PGY5 Pager [phone] Associated attestation - Esa Basilio MD - 12/03/2019 6:51 PM CDTI agree with the note as written Esa Basilio M.D. Interventional Cardiology Pager: [phone] documented in this encounter Procedure Notes Esa Basilio MD - 12/03/2019 7:00 AM CDTProcedure(s): CORONARY ANGIOGRAPHY; LEFT HEART CATHPre-Procedure Diagnose(s): Abnormal stress test Left Heart Cath/Coronary Angiography Date of Service: 12/03/2019 9:31 AM Fellow: Dr. Cruz Faculty: [employer] Indication/Diagnosis: positive stress test Consent source: self Consent type: indications/complications discussed with patient/legal guardian; written consent obtained Time out completed: yes Aseptic technique: Chlorprep Local Anesthesia: 1% lidocaine without epinephrine Sedation: fentanyl 75 mcg, Versed 2 mg Access site: right radial artery Closure Method: TR Band Sterile dressing: yes Complications: none Procedures: The patient arrived the cath lab nurse in stable condition. After patient identification/verification, the patient was thereafter transferred onto the cath lab nurse table. After administering sedation, Time Out was done. Using Seldinger technique, the right radial artery using a [employer]umo 5/6 Slender kit. The access was upgraded to a 5/6 Fr slender sheath. After administering the radial cocktail , a J wire was used to advance the 5 Fr Harpster 4.0 catheter to the ascending aorta. A J wire was then used to cross the AV, and the catheter was advanced into the LV, where selective LHC/LVEDP was measured.The 5 Fr catheter was then used to cannulate the LM. Selective coronary angiography was done using multiple views. The catheter was then used to cannulate the RCA and selective coronary angiography was done using multiple views. Findings: Coronary dominance: right Left main: Large, patent LAD: Large, proximal to mid mild LI, mid 20%, then mid to distal mild LI, distal vessel wraps aroundthe apex. D1: Large, mild lI D2: Small S1: Small RI: Small to medium size, midl LI LCX: Large, mild LI OM1: Small OM2: Large, proximal 10-20%, mid to distal mild LI OM3: Small RCA: Large, dominant, mild LI PDA: Medium size, mild LI PLB: medium size, mild LI LVEDP: 10 mmHg Impression: 1. Mild , non-obstructive disease Plan: 1. Aggressive medical management 2. Findings and plan discussed with family Esa Basilio M.D. Interventional Cardiology Pager: [phone] Esa Basilio M.D. Interventional Cardiology Pager: [phone] documented in this encounter Miscellaneous Notes Business Systems Analyst Procedure Note - Edith Obregon RN - 12/03/2019 9:27 AM CDT Elapsed Sedation Time: 46 min. documented in this encounter Plan of Treatment Date Type Specialty Care Team Description 12/09/2019 Office Visit Otolaryngology Ion Fajardo MD [address] [place] [address] [phone] Name Type Priority Associated Diagnoses Order S chedule EKG-12 LEAD ROUTINE HEART STATION STAT ONCE fo r 1 Occurrences starting 2019 until 0 EKG-12 LEAD ROUTINE HEART STATION Routine EVERY 8 HOURS STARTING IN 8 HOURS for 24 Hours starting 12/03/2019 unti l 12/04/2019 Health Maintenance Due Date Last Done Comments [...] Primary Other dyspnea and respiratory abnormalit y documented in this encounter Administered Medications Medication Order MAR Action Action Date Dose Rate Site aspirin tablet 325 mg Given 12/03/2019 7:27 AM CDT 325 mg 325 mg, Oral, ONCE, 1 dose, Fri12/03/19 at 0830, Routine FENTanyl PF (SUBLIMAZE (PF)) injection Given 12/03/2019 8:37 AM CDT 25 mcg Slow IV Push, TITRATE - FOR PROCEDURE USE, 1 dose, Starting Fri12/03/19 at 0837, Until Fri12/03/19 at 0837, Routine FENTanyl PF (SUBLIMAZE (PF)) injection Given 12/03/2019 8:53 AM CDT 25 mcg Slow IV Push, TITRATE - FOR PROCEDURE USE, 1 dose, Starting Fri12/03/19 at 0853, Until Fri12/03/19 at 0853, Routine heparin 1,000 unit/mL injection Given 12/03/2019 9:08 AM CDT 2,500 Units Slow IV Push, TITRATE - FOR PROCEDURE USE, 1 dose, Starting Fri12/03/19 at 0908, Until Fri12/03/19 at 0908, Routine lidocaine 1% (PF) (XYLOCAINE) injection Given 12/03/2019 8:53 AM CDT 10 mL Infiltration, TITRATE - FOR PROCEDURE USE, 1 dose, Starting Fri12/03/19 at 0853, Until Fri12/03/19 at 0853, Routine midazolam (VERSED) injection Given 12/03/2019 8:37 AM CDT 1 mg IV Push, TITRATE - FOR PROCEDURE USE, 1 dose, Starting Fri12/03/19 at 0837, Until Fri12/03/19 at 0837, Routine midazolam (VERSED) injection Given 12/03/2019 8:53 AM CDT 1 mg IV Push, TITRATE - FOR PROCEDURE USE, 1 dose, Starting Fri12/03/19 at 0853, Until Fri12/03/19 at 0853, Routine nitroglycerin (TRIDIL) 2 mg in 10 mL D5W for Given 9:08 AM CDT 0.2 mg Cardiac Cath Intravenous, TITRATE - FOR PROCEDURE USE, 1 dose, Starting Fri12/03/19 at 0908, Until Fri12/03/19 at 0908, Routine verapamiL (ISOPTIN) injection Given 12/03/2019 9:08 AM CDT 2.5 mg Intravenous, TITRATE - FOR PROCEDURE USE, 1 dose, Starting Fri12/03/19 at 0908, Until Fri12/03/19 at 0908, Routine documented in this encounter Insurance Payer Benefit Plan Subscriber ID Effective Dates Phone Address Type / Group BCBS OF [facility] [id number] 2017-Katheryn [phone] [address] PPO/POS [place] - OUT OF t [id number] [place] [address] documented as of this encounter
--- OUTSIDE RECORDS SUMMARY | 2020-01-10 18:12 | XMS REPORT | Summary of Care ---
:1970 Author Organization [facility] Address [address] [place] [address] Care Team Providers Name Role Phone Abi Rodriguez Primary Care Provider Reason for Visit Reason Comments Results Encounter Details Date Type Department Care Team Description 11/30/2019 Telephone [facility] Cardiology- Diego Vann MD Results [place] [address] [facility] [address] [facility], [address] [place] [address] [place] [address] [phone] Allergies Active Allergy Reactions Severity Noted Date Comments Lisinopril Other - See comments 10/22/2019 vertogo Penicillins Anaphylaxis 05/07/2006 documented as of this encounter (statuses as of 12/01/2019) Medications Medication Sig Dispensed Refills Start Date End Date Status olmesartan 40 mg tablet Take 40 mg by 0 Active mouth daily. chlorthalidone 25 mg Take 25 mg by 0 Active tablet mouth daily. terazosin 1 mg Take 1 capsule 30 capsule 2 10/22/2019 Active capsuleIndications: by mouth at Essential hypertension bedtime. 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 18 Overview: Both ears, mainly right ear drainage; ve ry painful, sometimes blood, lot of ringing Dizziness and giddiness 07/30/2006 01/28/2018 Dyspepsia and other specified disorders of function of stoma ch 07/30/2006 01/28/2018 Overview: Upset stomach Dysphagia 07/30/2006 01/28/2018 Overview: Hard to swallow ICD10 Diagnosis Term Intranet Specialist Utility documented as of this encounter (statuses as of 12/01/2019) Social History Tobacco Use Types Packs/Day Years [...] Telephone Encounter - Uma Cali RN - 12/01/2019 9:59 AM CDTLVM telling patient that we do not have the results of lab work but will call him as soon as we do. Telephone Encounter - Naomi Griffiths - 11/30/2019 8:28 AM CDTPatient is requesting a call back in regards to his blood work results. Please advise. documented in this encounter Plan of Treatment Date Type Specialty Care Team Description 12/03/2019 Appointment Cardiac Router Operator Radial Joyce Vann MD [address] [place] [address] [place] [address] [phone] Outpt-Lucien Johnson 12/09/2019 Office Visit Otolaryngology Ion Fajardo MD [address] [place], [place] [address]y [place] [address] [phone] Health Maintenance Due Date Last Done Comments [...] Phone Address Type / Group BCBS OF [facility] [id number] 2017-Katheryn [phone] [address] PPO/POS [place] - OUT OF 7 [id number] [place] [address] documented as of this encounter
--- OUTSIDE RECORDS SUMMARY | 2020-01-10 18:12 | XMS REPORT | Summary of Care ---
:1970 Author Organization [facility] Address [address] [place] [address] Care Team Providers Name Role Phone Abi Rodriguez Primary Care Provider Reason for Visit Reason Comments LAB covid testing- SOB, cough an d fatigue Encounter Details Date Type Department Care Team Description 01/08/2020 Laboratory Only [facility] Family Wally, Caty, PARK MAINTAINER [address] [facility] [address] [place], [place] [id number] Exposure to Medicine - [facility], Adc Fam Pob I SARS-associated [address] [facility] coronaviru s ([address] Dx) [place] [phone] Allergies Active Allergy Reactions Severity Noted Date Comments Lisinopril Other - See comments 10/22/2019 vertogo Penicillins Anaphylaxis 05/07/2006 documented as of this encounter (statuses as of 01/08/2020) Medications Medication Sig Dispensed Refills Start Date End Date Status olmesartan 40 mg tablet Take 40 mg by 0 Active mouth daily. chlorthalidone 25 mg Take 25 mg by 0 Active tablet mouth daily. terazosin 1 mg Take 1 capsule 30 capsule 2 10/22/2019 Active capsuleIndications: by mouth at Essential hypertension bedtime. 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 18 Overview: Both ears, mainly right ear drainage; ve ry painful, sometimes blood, lot of ringing Dizziness and giddiness 07/30/2006 01/28/2018 Dyspepsia and other specified disorders of function of stoma ch 07/30/2006 01/28/2018 Overview: Upset stomach Dysphagia 07/30/2006 01/28/2018 Overview: Hard to swallow ICD10 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 documented as of this encounter (statuses as of 01/08/2020) Social History Tobacco Use Types Packs/Day Years Used Date Never Smoker 10 Smokeless Tobacco: Current User Chew, Snuff Alcohol Use Drinks/Week oz/Week Comments Yes 3-4 times a year Sex Assigned at Date Recorded Not on file documented as of this encounter Last Filed Vital Signs Not on filedocumented in this encounter Nursing Notes Jerri Suarez MA - 01/08/2020 10:00 AM CDTErnest Cuauhtemoc Crawford III is a 49 year old male here for COVID Screening with a Nasopharyngeal Swab All droplet and contact precautions taken with appropriate PPE worn while interacting with patient. ? Goggles ? N95 Mask ? Gloves ? Gown RR 18 Pulse Ox 98% Patient educated on plan of care for visit, swabbing technique, risks and benefits of test and length of time to receive results. Verbal consent obtained to perform test. CDC Fact Sheet for Patients nCoV Diagnostic Panel dated 05/30/2019 and Factsheet What to Do if Sick with COVID 19 05/10/19 provided. Patient swabbed per appropriate nasopharyngeal technique, and patient tolerated well. Patient was discharged from the testing clinic in stable condition. Jerri Johnson MA 01/08/2020 10:26 AM Bilate nares swabbed during COVID19 nasopharyngeal swab. documented in this encounter Plan of Treatment Name Type Priority Associated Diagnoses Order S chedule COVID-19 (PCR MOLECULAR LAB Routine Exposure to Expe cted: 01/08/2020, TESTING) SARS-associated Expires: coronavirus Health Maintenance Due Date Last Done Comments [...] filedocumented in this encounter Visit Diagnoses Diagnosis Exposure to SARS-associated coronavirus - Primary documented in this encounter Additional Health Concerns Infection Onset Date Last Indicated Resolved Time COVID-19 Rule Out 01/08/2020 01/08/2020 documented as of this encounter Insurance Payer Benefit Plan Subscriber ID Effective Dates Phone Address Type / Group BCBS [facility] [id number] 2017-Katheryn [phone] [address] PPO/POS [place] - OUT OF t [id number] [place] [address] documented as of this encounter
[2020-01-10 18:58] LABS: Absolute Lymphocytes (CBC) 1.5 K/uL (0.7-4.9); Basophils % 0.3 % (0-1.3); Hematocrit 39.1 % (39.6-49.0); Lymphocytes % 8.3 % (15.3-44.8); MPV 7.8 fL (7.6-11.3); RBC Red Blood Cell Count 5.88 M/uL (4.33-5.43)
[2020-01-10 18:59] LABS: Protime INR 1.17
[2020-01-10] MEDS ORDERED: NA CHLORIDE 0.9% 0 ML ONE (19:04)
--- NOTE | 2020-01-10 19:10 | RAD REPORT ---
EXAM DESCRIPTION: RAD - Chest Single View - 01/10/2020 6:55 pm CLINICAL HISTORY: SOB COMPARISON: October 11 TECHNIQUE: AP portable chest image was obtained 01/10/2020 6:55 pm . FINDINGS: Lung volumes are low. Portable imaging and large body habitus further limit the study. No peripheral mass or consolidation. Cardiac silhouette is enlarged by exam limitations. Pericardial fat pads are present. True change from comparison is not suspected. No vascular engorgement. No measurable pleural effusion and no pneumothorax. No acute bony abnormality seen. No acute aortic findings suspected. IMPRESSION: Limited portable study without acute cardiopulmonary finding.
[2020-01-10] MEDS ORDERED: NA CHLORIDE 0.9% 1,000 ML ONE (19:11)
[2020-01-10 19:13] LABS: ALT/SGPT 46 U/L (12-78); AST/SGOT 18 U/L (15-37); Albumin 3.9 g/dL (3.4-5.0); Alkaline Phosphatase 123 U/L (45-117); BUN Blood Urea Nitrogen 28 mg/dL (7-18); Bicarbonate 20 mmol/L (21-32); Bilirubin Direct 0.1 mg/dL (0-0.2); Bilirubin Total 0.6 mg/dL (0.2-1.0); Glucose Level 105 mg/dL (74-106); Magnesium 2.2 mg/dL (1.8-2.4); NT PRO-BNP 23 pg/mL (<125); Potassium 3.9 mmol/L (3.5-5.1); Protein, Total 9.1 g/dL (6.4-8.2); Sodium Level 141 mmol/L (136-145); Troponin (Emerg Dept Use Only) < 0.02 ng/mL (0.0-0.045)
[2020-01-10] MEDS ORDERED: Levofloxacin500mg IV 500 MG/100 ML BAG IV ONE ×2 (19:25→23:00)
[2020-01-10 19:43] LABS: Anisocytosis 1+; Blood Morphology Comment NOTED (NOT SEEN); Platelet Estimate INCR; Poikilocytosis 2+; White Blood Cell Scan OK (OK)
[2020-01-10] MEDS ORDERED: FENTANYL CITR 100 MCG/2 ML ONE ×2 (20:19→23:37)
--- NOTE | 2020-01-10 20:24 | RAD REPORT ---
EXAM DESCRIPTION: CT - Abdomen Pelvis Wo Contrast - 01/10/2020 7:46 pm CLINICAL HISTORY: ABD PAIN COMPARISON: CT ABDOMEN PELVIS WO CONTRAST dated 02/08/2008 TECHNIQUE: Axial [address] imaging of the abdomen and pelvis was performed without IV contrast. No IV contrast was given because of allergy, abnormal renal function, patient refusal or physician re quest. No oral contrast administered. All CT scans are performed using dose optimization technique as appropriate and may include automated exposure control or mA/KV adjustment according to patient size. FINDINGS: No suspicious findings in the lung bases. Liver shows mild fatty infiltration pattern. No focal liver lesion. Spleen and pancreas show no suspi cious findings. Cholecystectomy clips are present with no biliary tree dilatation. No hydronephrosis or suspicious renal mass. No significant adrenal finding. Isodense renal masses an d pyelonephritis cannot be excluded in the absence of IV contrast. Urinary bladder is fully contracte d limiting assessment. No bladder calculi. Fluid-filled distended stomach present with no gastric wall thickening or mass. No duodenal abnormali ty. Multiple dilated small bowel loops in the mid abdomen up to 4.8 cm in diameter. No abrupt transit ion or obstructing mass. Air and stool are present in nondilated colon. No active colon process seen. No free air, free fluid or inflammatory stranding. No hernia, mass or bulky lymphadenopathy. No suspicious bony findings. IMPRESSION: Multiple dilated small bowel loops are present in the mid abdomen. No abrupt transition point or obstructing mass. Patient has a similar appearance on the 2007 CT study with a more defined transition point at that ti me. Findings could reflect early mechanical small bowel obstruction or a prominent ileus/enteritis proces s. No free air, abscess or other surgically emergent finding. Full assessment is limited is the absence of IV contrast.
[2020-01-10] MEDS ORDERED: NA CHLORIDE 0.9% 3,000 ML ONE (20:42)
[2020-01-10 20:47] LABS: Amylase 47 U/L (25-115); CKMB Creatine Kinase MB < 1.0 ng/mL (0.3-3.6); Creatine Phosphokinase 86 U/L (39-308); Lipase 95 U/L (73-393)
--- NOTE | 2020-01-10 20:48 | ER ---
Nurse's Notes [facility] Name: Yuri Crawford III Age: 49 yrs Sex: Male : 1970 Arrival Date: 01/10/2020 Time: 18:09 Bed 4 Private MD: Diagnosis: Acute kidney failure;Diarrhea, unspecified;Dehydration;Tachycardia, unspecified;Shortness of breath Presentation: 01/09 18:14 Chief complaint: Patient states: Muscle aches, SOB, diarrhea x 3 days. Cold hands and ca1 feet today. Upper abdominal pain since today. Denies cough, congestion, N/V. Denies fever. Coronavirus screen: Client denies travel out of the [place] in the last 14 days. diarrhea, fatigue, muscle pain, shortness of breath, Client presents with at least one sign or symptom that may indicate coronavirus-19. Standard/surgical mask placed on the client. Provider contacted for isolation considerations. The client reports previous COVID testing was negative. Date of collection: January 07, 2020. Ebola Screen: Patient negative for fever greater than or equal to 101.5 degrees Fahrenheit, and additional compatible Ebola Virus Disease symptoms Patient denies exposure to infectious person. Patient denies travel to an Ebola-affected area in the 21 days before illness onset. No symptoms or risks identified at this time. Initial Sepsis Screen: Does the patient meet any 2 criteria? No. Patient's initial sepsis screen is negative. Does the patient have a suspected source of infection? No. Patient's initial sepsis screen is negative. Risk Assessment: Do you want to hurt yourself or someone else? Patient reports no desire to harm self or others. Onset of symptoms was January 10, 2020. 18:14 Method Of Arrival: Ambulatory ca1 18:14 Acuity: TOÑO 3 ca1 18:40 Initial Sepsis Screen: Does the patient meet any 2 criteria? Systolic BP < 90 mmHg. HR ca1 > 90 bpm. Yes Does the patient have a suspected source of infection? Yes: Acute abdominal pain Other: Diarrhea. Historical: - Allergies: 18:20 PENICILLINS; ca1 - PMHx: 18:20 Sleep Apnea; Hypertension; ca1 - PSHx: 18:20 ear drum reconstruction; Cholecystectomy; ca1 - Immunization history:: Adult Immunizations up to date. - Social history:: Smoking status: Patient denies any tobacco usage or history of. Screenin:43 Abuse screen: Denies threats or abuse. Nutritional screening: No deficits noted. ea Tuberculosis screening: No symptoms or risk factors identified. Fall Risk IV access (20 points). Assessment: 18:50 Reassessment: To bedside to administer NS bolus, pt currently in restroom. . aa5 19:10 General: Appears uncomfortable. Pain: Complains of pain in abdomen. Neuro: Level of ea Consciousness is awake, alert, obeys commands, Oriented to person, place, time, situation. Cardiovascular: Patient's skin is warm and dry. Respiratory: Airway is patent Respiratory effort is even, unlabored, Respiratory pattern is regular, symmetrical. Derm: Skin is pink, warm \T\ dry. Musculoskeletal: Circulation, motion, and sensation intact. 20:00 Reassessment: Patient appears in no apparent distress at this time. Patient is alert, rr5 oriented x 3, equal unlabored respirations, skin warm/dry/pink. complaining of abdominal pain ED provider with order made and carried out. 20:59 Reassessment: Provider at bedside updating pt on plan of care. ea 21:31 Reassessment: Patient appears in no apparent distress at this time. Patient is alert, rr5 oriented x 3, equal unlabored respirations, skin warm/dry/pink. last Friday01/07/20 tested in [facility] for covid got the result negative last Friday. for admission awaiting for room assignment. 23:53 Reassessment: Patient and/or family updated on plan of care and expected duration. Pain ea level reassessed. Patient is alert, oriented x 3, equal unlabored respirations, skin warm/dry/pink. Pt admitted to second floor, left ED via stretcher per technical instructor. Pt tolerating well. Vital Signs: 18:14 BP 105 / 54; Pulse 140; Resp 20 S; Temp 98.8(O); Pulse Ox 97% on R/A; Weight 141.52 kg ca1 (R); Height 5 ft. 9 in. (175.26 cm) (R); Pain 8/10; 18:40 BP 81 / 54; Pulse 130; Resp 19 S; Pulse Ox 97% on R/A; ca1 19:30 BP 100 / 86; Pulse 120; Resp 19; Pulse Ox 97% ; ea 20:05 BP 105 / 62; Pulse 122; Resp 17; Pulse Ox 99% ; Pain 8/10; rr5 20:54 BP 95 / 53; Pulse 103; Resp 18; Pulse Ox 98% on R/A; ea 21:38 BP 118 / 62; Pulse 98; Resp 18; Pulse Ox 98% ; ea 23:42 BP 114 / 62; Pulse 101; Resp 18; Temp 98.5; Pulse Ox 98% ; ea 18:14 Body Mass Index 46.07 (141.52 kg, 175.26 cm) ca1 ED Course: 18:09 Patient arrived in ED. as 18:19 Triage completed. ca1 18:20 Arm band placed on right wrist. ca1 18:24 Fernando Pastor NP is PHCP. pm1 18:24 Corky Bejarano MD is Attending Physician. pm1 18:40 Inserted saline lock: 20 gauge in right antecubital area, using aseptic technique. ca1 Blood collected. 18:40 Initial lab(s) drawn, by me, sent to lab. First set of blood cultures drawn by me. ca1 18:56 XRAY Chest (1 view) In Process Unspecified. EDMS 19:09 Pavithra Rivera, SAHIL is Primary Nurse. ea 19:10 Patient has correct armband on for positive identification. Placed in gown. Bed in low ea position. Call light in reach. Side rails up X2. ekg monitor on. Pulse ox on. NIBP on. 19:19 Inserted saline lock: 20 gauge in left antecubital area, using aseptic technique. Blood ea collected. 19:46 Abdomen In Process Unspecified. EDMS 20:47 Elio Gallagher DO is Hospitalizing Provider. pm1 21:38 No provider procedures requiring assistance completed. Patient admitted, IV remains in ea place. Administered Medications: 19:10 Drug: NS 0.9% 1000 ml Route: IV; Rate: 1000 ml; Site: right antecubital; ea 20:39 Follow up: Response: No adverse reaction; IV Status: Completed infusion; IV Intake: ea 1000ml 19:25 Drug: LevaQUIN 500 mg Volume: 100 ml; Route: IVPB; Infused Over: 60 mins; Site: left ea antecubital; 21:30 Follow up: Response: No adverse reaction; IV Status: Completed infusion; IV Intake: rr5 100ml 20:05 Drug: fentaNYL (PF) 50 mcg {Note: rass 0.} Route: IVP; Site: right antecubital; rr5 20:57 Follow up: Response: No adverse reaction; Pain is decreased ea 20:35 Drug: NS 0.9% (30 ml/kg) 30 ml/kg Route: IV; Rate: bolus; Site: left antecubital; rr5 23:41 Follow up: Response: No adverse reaction; IV Status: Completed infusion; IV Intake: ea 3000ml 21:29 Drug: Flagyl 500 mg Volume: 100 ml; Route: IVPB; Rate: 200 ml/hr; Infused Over: 30 rr5 mins; Site: right antecubital; 22:10 Follow up: Response: No adverse reaction; IV Status: Completed infusion ea 23:28 Drug: fentaNYL (PF) 25 mcg Route: IVP; Site: right antecubital; sg 23:40 Follow up: Response: No adverse reaction ea Intake: 20:39 IV: 1000ml; Total: 1000ml. ea 21:30 IV: 100ml; Total: 1100ml. rr5 23:41 IV: 3000ml; Total: 4100ml. ea Outcome: 20:47 Decision to Hospitalize by Provider. pm1 21:38 Instructed on the need for admit, Demonstrated understanding of instructions. ea 23:30 Admitted to Med/surg accompanied by tech, room 212, with chart, Report called to thong Vigil RN 23:30 Condition: stable 23:53 Patient left the ED. ea Signatures: Dispatcher [employer] EDMS Tavo Sanchez RN RN sg Martinez, Amelia as Calderon, Audri RN RN aa5 Fernando Pastor, [employer] pm1 Pavithra Rivera RN RN ea Roque, Raymond, RN RN rr5 Sugey Miller RN RN ca1 Corrections: (The following items were deleted from the chart) 18:19 18:14 Coronavirus screen: Client denies travel out of the [place] in the last 14 days. ca1 diarrhea, fatigue, muscle pain, shortness of breath, The client reports previous COVID testing was negative. Date of collection: January 07, 2020 ca1 18:19 18:14 BP 105 / 54; Pulse 140bpm; Resp 20bpm; Spontaneous; Pulse Ox 100% RA; Temp 98.8F ca1 Oral; 141.52 kg Reported; Height 5 ft. 9 in. Reported; BMI: 46.0; Pain 8/10; ca1 19:58 19:10 NS 0.9% (30 ml/kg) 30 ml/kg IV at bolus in right antecubital ea ea 20:10 20:05 BP 105 / 62; Pulse 122bpm; Resp 17bpm; Pulse Ox 99%; rr5 rr5 23:53 23:40 Reassessment: Patient and/or family updated on plan of care and expected ea duration. Pain level reassessed. Patient is alert, oriented x 3, equal unlabored respirations, skin warm/dry/pink. Pt admitted to second floor, left ED via stretcher per technical instructor. Pt tolerating well ea
--- NOTE | 2020-01-10 20:48 | EDPHYS ---
Physician Documentation [facility] Name: Yuri Crawford III Age: 49 yrs Sex: Male : 1970 Arrival Date: 01/10/2020 Time: 18:09 Bed 4 Private MD: ED Physician Corky Bejarano HPI: 01/09 18:49 This 49 yrs old Male presents to ER via Ambulatory with complaints of pm1 Shortness Of Breath, Abdominal Pain, Diarrhea. 18:49 The patient presents with abdominal pain in the upper abdomen. Onset: The pm1 symptoms/episode began/occurred this morning. The symptoms do not radiate. Associated signs and symptoms: Pertinent positives: diarrhea, Pertinent negatives: chest pain, fever, nausea, shortness of breath, vomiting. The symptoms are described as crampy. Modifying factors: The symptoms are alleviated by nothing, the symptoms are aggravated by food. Severity of pain: in the emergency department the pain is actually worse. Patient was working in [employer] for the past week. On Friday he started having diarrhea. Multiple episode of diarrhea daily and he has had decreased urination. This morning he started having upper abdominal pain and shortness of breath along with the diarrhea. Historical: - Allergies: 18:20 PENICILLINS; ca1 - PMHx: 18:20 Sleep Apnea; Hypertension; ca1 - PSHx: 18:20 ear drum reconstruction; Cholecystectomy; ca1 - Immunization history:: Adult Immunizations up to date. - Social history:: Smoking status: Patient denies any tobacco usage or history of. ROS: 18:49 Eyes: Negative for injury, pain, redness, and discharge, ENT: Negative for injury, pm1 pain, and discharge, Neck: Negative for injury, pain, and swelling, Cardiovascular: Negative for chest pain, palpitations, and edema. 18:49 Back: Negative for injury and pain. 18:49 MS/Extremity: Negative for injury and deformity, Skin: Negative for injury, rash, and discoloration. 18:49 Constitutional: Positive for poor PO intake, Negative for body aches, fever. 18:49 Respiratory: Positive for shortness of breath, Negative for cough. 18:49 Abdomen/GI: Positive for abdominal pain, diarrhea, Negative for nausea and vomiting. 18:49 : Positive for decreased urine output, Negative for flank pain, burning with urination. 18:49 Neuro: Positive for numbness, of the right hand, left hand, right foot and left foot. Exam: 18:49 Constitutional: This is a well developed, well nourished patient who is awake, alert, pm1 and in no acute distress. Head/Face: Normocephalic, atraumatic. Respiratory: Lungs have equal breath sounds bilaterally, clear to auscultation and percussion. No rales, rhonchi or wheezes noted. No increased work of breathing, no retractions or nasal flaring. 18:49 Back: No spinal tenderness. No costovertebral tenderness. Full range of motion. Skin: Warm, dry with normal turgor. Normal color with no rashes, no lesions, and no evidence of cellulitis. MS/ Extremity: Pulses equal, no cyanosis. Neurovascular intact. Full, normal range of motion. 18:49 Cardiovascular: Rate: tachycardic, actual rate is 142 bpm, Rhythm: regular, Pulses: no pulse deficits are appreciated, Heart sounds: normal, Edema: is not appreciated. 18:49 Abdomen/GI: Inspection: obese Palpation: soft, in all quadrants, mild abdominal tenderness, in the right upper quadrant and left upper quadrant. 18:49 Neuro: Exam negative for acute changes, Orientation: is normal, Mentation: is normal, Motor: is normal, moves all fours, Sensation: is normal, no obvious gross deficits. Vital Signs: 18:14 BP 105 / 54; Pulse 140; Resp 20 S; Temp 98.8(O); Pulse Ox 97% on R/A; Weight 141.52 kg ca1 (R); Height 5 ft. 9 in. (175.26 cm) (R); Pain 8/10; 18:40 BP 81 / 54; Pulse 130; Resp 19 S; Pulse Ox 97% on R/A; ca1 19:30 BP 100 / 86; Pulse 120; Resp 19; Pulse Ox 97% ; ea 20:05 BP 105 / 62; Pulse 122; Resp 17; Pulse Ox 99% ; Pain 8/10; rr5 20:54 BP 95 / 53; Pulse 103; Resp 18; Pulse Ox 98% on R/A; ea 21:38 BP 118 / 62; Pulse 98; Resp 18; Pulse Ox 98% ; ea 23:42 BP 114 / 62; Pulse 101; Resp 18; Temp 98.5; Pulse Ox 98% ; ea 18:14 Body Mass Index 46.07 (141.52 kg, 175.26 cm) ca1 MDM: 18:24 Patient medically screened. pm1 18:59 Data reviewed: vital signs. pm1 19:34 Counseling: I had a detailed discussion with the patient and/or guardian regarding: the pm1 historical points, exam findings, and any diagnostic results supporting the discharge/admit diagnosis, lab results, the need for further work-up and treatment in the hospital. 20:45 Physician consultation: Wade JOHNSON was called at 20:46, was contacted at 20:46, pm1 regarding admission, patient's condition, and will see patient in ED, shortly. 20:46 Data interpreted: Pulse oximetry: on room air is 99 %. Interpretation: normal. pm1 01/09 18:35 Order name: Basic Metabolic Panel; Complete Time: 20:49 pm1 01/09 18:35 Order name: CBC with Diff; Complete Time: 19:52 pm1 01/09 18:35 Order name: LFT's; Complete Time: 20:49 pm1 01/09 18:35 Order name: Magnesium; Complete Time: 20:49 pm1 01/09 18:35 Order name: NT PRO-BNP; Complete Time: 20:49 pm1 01/09 18:35 Order name: PT-INR; Complete Time: 20:21 pm1 01/09 18:35 Order name: Troponin (emerg Dept Use Only); Complete Time: 20:49 pm1 01/09 18:35 Order name: Flu; Complete Time: 23:00 pm1 01/09 18:54 Order name: Blood Culture Adult (2) pm1 01/09 18:54 Order name: Lactate; Complete Time: 19:52 pm1 01/09 18:35 Order name: XRAY Chest (1 view); Complete Time: 19:30 pm1 01/09 18:54 Order name: Procalcitonin; Complete Time: 21:01 pm1 01/09 18:54 Order name: Urine Microscopic Only pm01/09 18:54 Order name: Fecal Leukocyte Stain; Complete Time: 19:52 pm1 01/09 18:54 Order name: Ova And Parasites pm01/09 18:54 Order name: Stool Culture pm01/09 19:43 Order name: CBC Smear Scan; Complete Time: 19:52 EDMS 01/09 20:12 Order name: PTT, Activated Partial Thromb; Complete Time: 20:21 EDMS 01/09 20:13 Order name: Creatine Phosphokinase; Complete Time: 20:49 EDMS 01/09 20:13 Order name: CKMB Creatine Kinase MB; Complete Time: 20:49 EDMS 01/09 20:13 Order name: Amylase; Complete Time: 20:49 EDMS 01/09 20:13 Order name: Lipase; Complete Time: 20:49 EDMS 01/09 23:14 Order name: Lactate Sepsis 2 HR Follow-up; Complete Time: 23:30 EDMS 01/09 23:27 Order name: SARS-COV-2 RT PCR; Complete Time: 23:30 EDMS 01/09 18:35 Order name: EKG; Complete Time: 18:36 pm1 01/09 18:35 Order name: Cardiac monitoring; Complete Time: 18:57 pm1 01/09 18:35 Order name: EKG - Nurse/Tech; Complete Time: 18:57 pm1 01/09 18:35 Order name: IV Saline Lock; Complete Time: 18:57 pm1 01/09 18:35 Order name: Labs collected and sent; Complete Time: 18:57 pm1 01/09 18:35 Order name: O2 Per Protocol; Complete Time: 18:57 pm1 01/09 18:35 Order name: O2 Sat Monitoring; Complete Time: 18:57 pm1 01/09 18:54 Order name: IV Saline Lock - Large Bore; Complete Time: 18:57 pm1 01/09 19:33 Order name: Abdomen ; Complete Time: 20:35 EDMS Administered Medications: 19:10 Drug: NS 0.9% 1000 ml Route: IV; Rate: 1000 ml; Site: right antecubital; ea 20:39 Follow up: Response: No adverse reaction; IV Status: Completed infusion; IV Intake: ea 1000ml 19:25 Drug: LevaQUIN 500 mg Volume: 100 ml; Route: IVPB; Infused Over: 60 mins; Site: left ea antecubital; 21:30 Follow up: Response: No adverse reaction; IV Status: Completed infusion; IV Intake: rr5 100ml 20:05 Drug: fentaNYL (PF) 50 mcg {Note: rass 0.} Route: IVP; Site: right antecubital; rr5 20:57 Follow up: Response: No adverse reaction; Pain is decreased ea 20:35 Drug: NS 0.9% (30 ml/kg) 30 ml/kg Route: IV; Rate: bolus; Site: left antecubital; rr5 23:41 Follow up: Response: No adverse reaction; IV Status: Completed infusion; IV Intake: ea 3000ml 21:29 Drug: Flagyl 500 mg Volume: 100 ml; Route: IVPB; Rate: 200 ml/hr; Infused Over: 30 rr5 mins; Site: right antecubital; 22:10 Follow up: Response: No adverse reaction; IV Status: Completed infusion ea 23:28 Drug: fentaNYL (PF) 25 mcg Route: IVP; Site: right antecubital; sg 23:40 Follow up: Response: No adverse reaction ea Disposition: 01/10 07:57 Co-signature as Attending Physician, Corky Bejarano MD I agree with the assessment and sid plan of care. Disposition: 01/10/20 20:47 Hospitalization ordered by Elio Gallagher for Inpatient Admission. Preliminary diagnosis are Acute kidney failure, Diarrhea, unspecified, Dehydration, Tachycardia, unspecified, Shortness of breath. - Bed requested for Telemetry/MedSurg (Inpatient). - Status is Inpatient Admission. ea - Condition is Stable. - Problem is new. - Symptoms have improved. Signatures: Dispatcher [employer] EDTavo Hudson, Corky Toribio RN, MD MD cha Attema, Lee, ADVERTISING PHOTOGRAPHER-C ADVERTISING PHOTOGRAPHER-Cla1 Monica Rodriguez, RN RN tl1 Fernando Pastor, VETERINARY TECHNICIAN VETERINARY TECHNICIAN pm1 Pavithra Rivera RN RN ea Roque, Raymond, RN RN rr5 Sugey Miller RN RN ca1 Corrections: (The following items were deleted from the chart) 01/09 18:56 18:54 Accucheck ordered. pm1 tw2 19:33 18:36 Abdomen Pelvis W Con+CT.RAD.BRZ ordered. EDMS EDMS 20:11 18:55 PTT, ACTIVATED+COAG.LAB.BRZ ordered. EDMS EDMS 20:12 18:55 AMYLASE, SERUM+C.LAB.BRZ ordered. EDMS EDMS 20:12 18:55 CKMB+C.LAB.BRZ ordered. EDMS EDMS 20:12 18:55 CREATINE PHOSPHOKINASE+C.LAB.BRZ ordered. EDNJ EDMS 20:12 18:55 LIPASE+C.LAB.BRZ ordered. EDNJ EDMS 22:06 21:42 CORONAVIRUS+MR.LAB.BRZ ordered. EDNJ EDMS 23:17 20:47 Hospitalization Ordered by Elio Gallagher DO for Inpatient Admission. Preliminary tl1 diagnosis is Acute kidney failure; Diarrhea, unspecified; Dehydration; Tachycardia, unspecified; Shortness of breath. Bed requested for Telemetry/MedSurg (Inpatient). Status is Inpatient Admission. Condition is Stable. Problem is new. Symptoms have improved. pm1 23:53 23:17 01/10/2020 20:47 Hospitalization Ordered by Elio Gallagher DO for Inpatient ea Admission. Preliminary diagnosis is Acute kidney failure; Diarrhea, unspecified; Dehydration; Tachycardia, unspecified; Shortness of breath. Bed requested for Telemetry/MedSurg (Inpatient). Status is Inpatient Admission. Condition is Stable. Problem is new. Symptoms have improved. tl1
[2020-01-10] MEDS ORDERED: METRONIDAZOLE 500mg IVPB 500 MG/100 ML BAG IV ONE (21:02)
--- NOTE | 2020-01-10 21:22 | P.HP ---
Certification for Inpatient Patient admitted to: Inpatient With expected LOS: >2 Midnights Patient will require the following post-hospital care: None Practitioner: I am a practitioner with admitting privileges, knowledge of patient current condition, hospital course, and medical plan of care. Services: Services provided to patient in accordance with Admission requirements found in Title 42 Section 412.3 of the Code of Federal Regulations <Wade Conner - Last Filed: 01/10/20 21:16> Patient admitted to: Inpatient <Elio Gallagher - Last Filed: 01/11/20 13:18> Patient History Date of Service: 01/10/20 Primary Care Provider: Dr. Rodriguez Reason for admission: Sepsis, SBO Vs. Enteritis History of Present Illness: 49-year-old male with history of hypertension and sleep apnea presents emergency department with 4 day history of diarrhea and upper abdominal pain. Patient reports that he has had loose, watery, green/clear diarrhea without nausea or vomiting. Patient reports a similar episode in 2007 at which time he was diagnosed with small bowel obstruction. Patient did not require surgical intervention at that time. During patient's workup in the emergency department he is found to have acute kidney injury with creatinine 2.25, GFR 31, BUN 28. Labs also stand for elevated white blood cell count at 18. Upon presentation to the emergency department patient was tachycardic and hypotensive with blood pressure of 81/54 and heart rate of 130, sepsis protocol was started in the emergency department, patient was given sepsis fluid bolus, early antibiotics and stool, blood cultures were obtained. Patient has improved with fluids, heart rate now around 100 with systolic blood pressure around 100. Initial lactate 2.0. CT abdomen pelvis shows multiples dilated small-bowel loops present in the mid abdomen with no abrupt transition point or obstructing mass, findings could reflect early mechanical small bowel obstruction or a prominent ileus/enteritis pattern. Patient was given Flagyl/Levaquin in the emergency department. When I saw the patient in the emergency department he was awake, alert, oriented x3. Patient heart rate around 100, blood pressure around 100 systolic. Patient not in any significant distress at this time. Patient with sepsis without severe sepsis at this time. Patient be admitted for further evaluation and management. 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 and lives with his - Family History Mother -: Heart disease, Diabetes, Cancer Father -: Cancer - Social History Smoking Status: Never smoker Alcohol use: Yes CD- Drugs: No Caffeine use: Yes Place of Residence: Home <Wade Conner - Last Filed: 01/10/20 21:16> Date of Service: 01/11/20 <Elio Gallagher - Last Filed: 01/11/20 13:18> Allergies Penicillins Allergy (Severe, Verified 07/28/12 10:58) Anaphylaxis Review of Systems 10-point ROS is otherwise unremarkable Gastrointestinal: Abdominal Pain, Diarrhea <Wade Conner - Last Filed: 01/10/20 21:16> Physical Examination - Physical Exam General: Alert, In no apparent distress, Oriented x3 HEENT: Atraumatic, Normocephalic, PERRLA, Other (Mucous membranes dry) Neck: Supple Respiratory: Clear to auscultation bilaterally, Normal air movement Cardiovascular: Regular rate/rhythm (Tachycardia) Capillary refill: <2 Seconds Gastrointestinal: Hypoactive, No rebound, No guarding, Tenderness (Mild generalized abdominal tenderness) Musculoskeletal: No contractures, No erythema, No tenderness Integumentary: No significant lesion, No tenderness/swelling, No erythema Neurological: Normal speech, Normal strength at 5/5 x4 extr, Normal tone, Sensation intact Lymphatics: No axilla or inguinal lymphadenopathy - Studies Laboratory Data (last 24 hrs) 01/10/20 18:54: APTT Cancelled 01/10/20 18:54: Amylase Cancelled, Lipase Cancelled 01/10/20 18:40: PT 13.8 H, INR 1.17, APTT 33.0 01/10/20 18:40: WBC 18.0 H, Hgb 12.4 L, Hct 39.1 L, Plt Count 577 H 01/10/20 18:40: Sodium 141, Potassium 3.9, BUN 28 H, Creatinine 2.25 H, Glucose 105, Magnesium 2.2, Total Bilirubin 0.6, AST 18, ALT 46, Alkaline Phosphatase 123 H, Amylase 47, Lipase 95 Microbiology Data (last 24 hrs): 01/10/20 19:10 Stool Fecal Leukocyte Stain - Final <Wade Conner - Last Filed: 01/10/20 21:16> - Studies Laboratory Data (last 24 hrs) 01/10/20 18:54: APTT Cancelled 01/10/20 18:54: Amylase Cancelled, Lipase Cancelled 01/10/20 18:40: PT 13.8 H, INR 1.17, APTT 33.0 01/10/20 18:40: WBC 18.0 H, Hgb 12.4 L, Hct 39.1 L, Plt Count 577 H 01/10/20 18:40: Sodium 141, Potassium 3.9, BUN 28 H, Creatinine 2.25 H, Glucose 105, Magnesium 2.2, Total Bilirubin 0.6, AST 18, ALT 46, Alkaline Phosphatase 123 H, Amylase 47, Lipase 95 Microbiology Data (last 24 hrs): 01/10/20 21:50 Nasopharnyx Influenza Type A Antigen Screen - Final 01/10/20 21:50 Nasopharnyx Influenza Type B Antigen Screen - Final 01/10/20 19:10 Stool Fecal Leukocyte Stain - Final <Elio Gallagher - Last Filed: 01/11/20 13:18> Assessment and Plan - Plan Assessment Sepsis secondary to enteritis versus early small bowel obstruction Acute kidney injury Hypertension Sleep apnea Plan Sepsis secondary to enteritis versus early small bowel obstruction: Case was discussed with General Surgery, continue with Flagyl/Levaquin at this time. Patient NPO, continue with IV rehydration. Blood and stool cultures collected. Initial lactate 2.0, will trend lactate level. Patient did receive sepsis fluids in the emergency department. Will perform followup sepsis evaluation. DVT prophylaxis with SCDs at this time due to surgery preference. KUB in the morning. Will provide patient with p.r.n. pain and nausea medications. Acute kidney injury: Nephrology consult in place, have ordered a renal ultrasound, urine electrolytes, CPK, uric acid. Likely prerenal related to dehydration secondary to diarrhea, continue with IV rehydration at this time as patient is NPO. Appreciate further input from nephrology. Avoid nephrotoxic agents and IV contrast. Hypertension: Patient systolic blood pressure remains low around 100 at this time, hold blood pressure medications. Sleep apnea: Recommend patient bring CPAP. Discharge Plan: Home Plan to discharge in: Greater than 2 days - Advance Directives Does patient have a Living Will: No Does patient have a Durable POA for Healthcare: No - Code Status/Comfort Care Code Status Assessed: Yes (Full Code) Critical Care: No Time Spent Managing Pts Care (In Minutes): 55 <Wade Conner - Last Filed: 01/10/20 21:16> - Plan Case discussed in detail with nurse practitioner. Agree with plan of care. Patient with enteritis verses early small-bowel obstruction. Continue IV fluids. Case discussed with surgery. Will keep the patient NPO. Once improved will consider advancing diet. Will also discuss with nephrology please see progress note for details. <Elio Gallagher - Last Filed: 01/11/20 13:18>
[2020-01-10] MEDS ORDERED: ONDANSETRON 4 MG (ODT) TAB PO PRN (23:47)
[2020-01-10] MEDS ORDERED: NA CHLORIDE 0.9% 500 ML IV ONE (23:47)
[2020-01-10] MEDS ORDERED: MORPHINE 2 MG/ML SYR IV PRN (23:47)
--- NOTE | 2020-01-11 00:52 | P.INFCA ---
Sepsis Focused Assessment - Focused Assessment Complete? Sepsis Focused Assessment Completed?: Yes - Sepsis Screen Result Severe Sepsis: Negative Septic Shock: Negative - Evaluation Current stage of sepsis: Ruled out Reason for ruling out sepsis: BP WNL. lacate WNL - Vital Signs Reviewed: Yes Temperature: 97.7 F Heart rate: 120 Blood Pressure: 115/77 Respiratory Rate: 20 O2 Sat by Pulse Oximetry: 96 - Examination Date exam was performed: 01/11/20 Time exam was performed: 00:51 Heart: Regular rate/rhythm (Tachycardia) Lungs: Clear bilaterally Peripheral pulses: 3+ Normal Peripheral pulse location: Radial Capillary refill: <2 Seconds Skin examination: Normal turgor
[2020-01-11] MEDS ORDERED: METRONIDAZOLE 500mg IVPB 500 MG/100 ML BAG IV SCH ×2 (01:00)
[2020-01-11 02:55] LABS: Urine Appearance CLEAR; Urine Blood NEGATIVE (NEG); Urine Color YELLOW; Urine Glucose NEGATIVE (NEG); Urine Protein 1+ (NEG); Urine Specific Gravity 1.025 (1.005-1.030); Urine Urobilinogen 0.2 mg/dL (0.2-1.0); Urine pH 5.5 (5.0-7.0)
[2020-01-11 03:08] LABS: Urine Microscopic Reflex ORDER UMIC
[2020-01-11 03:17] LABS: Urine Bilirubin NEGATIVE (NEG)
[2020-01-11 03:24] LABS: Urine Bacteria <20 /HPF (NONE SEEN); Urine Culture Reflex Order NOT NEEDED; Urine Mucus 2+ /HPF (NONE SEEN); Urine RBC <5 /HPF (NONE SEEN)
[2020-01-11 04:37] LABS: Absolute Lymphocytes (CBC) 1.5 K/uL (0.7-4.9); Basophils % 0.3 % (0-1.3); Hematocrit 34.2 % (39.6-49.0); Lymphocytes % 11.5 % (15.3-44.8); MPV 7.8 fL (7.6-11.3); RBC Red Blood Cell Count 5.16 M/uL (4.33-5.43)
[2020-01-11 04:52] LABS: Magnesium 1.9 mg/dL (1.8-2.4); Potassium 3.9 mmol/L (3.5-5.1); Uric Acid 7.2 mg/dL (3.5-7.2)
[2020-01-11] MEDS ORDERED: KCL 20 MEQ/100 mL IVPB 20 MEQ/100 ML BAG IV SCH (05:10)
[2020-01-11] MEDS ORDERED: ONDANSETRON 4 MG/2 ML VIAL IV PRN (06:31)
[2020-01-11] MEDS ORDERED: ONDANSETRON 4 MG/2 ML VIAL ONE (06:52)
--- NOTE | 2020-01-11 07:10 | RAD REPORT ---
EXAM DESCRIPTION: RAD - Abdomen 1 View (KUB) - 01/11/2020 5:37 am CLINICAL HISTORY: Assess SBO COMPARISON: ABDOMEN 1 VIEW KUB dated 02/09/2008; Abdomen Pelvis Wo Contrast dated 01/10/2020 FINDINGS: Multiple dilated small bowel loops are still present. Pattern is not substantially changed from the prior day CT study. No free air or pneumatosis. There is air present throughout the nondila flory colon from cecum to rectum. This is also similar to the CT study. Cholecystectomy clips are prese nt. IMPRESSION: Dilated small bowel pattern is similar to the prior day CT study. No free air or pneumatosis.
[2020-01-11] MEDS: NA CHLORIDE 0.9% 1,000 ML IV SCH ×3 (07:47→15:47)
--- NOTE | 2020-01-11 08:05 | P.PN ---
Subjective Date of Service: 01/11/20 Primary Care Provider: Dr. Rodriguez Chief Complaint: Sepsis, SBO Vs. Enteritis Subjective: Other (Patient reports slight improvement. Still with some warning. Diarrhea still present.) Physical Examination - Vital Signs Temperature: 97.9 F Blood Pressure: 125/72 Pulse: 92 Respirations: 18 Pulse Ox (%): 96 - Physical Exam General: Alert, In no apparent distress, Oriented x3, Cooperative HEENT: Atraumatic, Other (Dry mucous membranes) Respiratory: Clear to auscultation bilaterally Cardiovascular: Normal pulses, Regular rate/rhythm Gastrointestinal: Hypoactive, No masses, No rebound, No guarding, Tenderness (Mild tenderness to the epigastric region) Musculoskeletal: No erythema, No tenderness, No warmth Integumentary: No tenderness/swelling, No erythema, No warmth, No cyanosis Neurological: Normal speech, Normal strength at 5/5 x4 extr, Normal tone, Normal affect - Studies Laboratory Data (last 24 hrs) 01/10/20 18:54: APTT Cancelled 01/10/20 18:54: Amylase Cancelled, Lipase Cancelled 01/10/20 18:40: PT 13.8 H, INR 1.17, APTT 33.0 01/10/20 18:40: WBC 18.0 H, Hgb 12.4 L, Hct 39.1 L, Plt Count 577 H 01/10/20 18:40: Sodium 141, Potassium 3.9, BUN 28 H, Creatinine 2.25 H, Glucose 105, Magnesium 2.2, Total Bilirubin 0.6, AST 18, ALT 46, Alkaline Phosphatase 123 H, Amylase 47, Lipase 95 Microbiology Data (last 24 hrs): 01/10/20 21:50 Nasopharnyx Influenza Type A Antigen Screen - Final 01/10/20 21:50 Nasopharnyx Influenza Type B Antigen Screen - Final 01/10/20 19:10 Stool Fecal Leukocyte Stain - Final Medications List Reviewed: Yes Assessment & Plan Discharge Plan: Home Plan to discharge in: 72 Hours Physician Review Additional Text: Assessment Sepsis secondary to enteritis versus early small bowel obstruction Acute kidney injury Hypertension Obstructive sleep apnea on CPAP Obesity, BMI 46 Plan Sepsis secondary to enteritis versus early small bowel obstruction: Suspect viral enteritis. Possible early small-bowel obstruction noted. Continue with IV Flagyl/Levaquin. Patient has responded to sepsis bolus. Continue IV fluids. Await blood, stool culture results. C diff culture obtained as well. DVT prophylaxis-SCDs in place as recommended by surgery. Patient remains NPO at this time. Will provide medication for nausea. Will continue monitor closely. Will discuss further with surgery and nephrology. Continue to hold blood pressure medication at this time. Patient reports history of small-bowel obstruction in the past. Will continue to reassess. Anticipate improvement over the next 72 hr. Acute kidney injury: Nephrology consulted. Renal ultrasound to be obtained. Continue IV fluids. Will add Protonix IV. Await recommendations by nephrology. Hypertension: Continue to hold blood pressure medication at this time. Obstructive sleep apnea on CPAP: Patient may use his CPAP from home. Obesity, BMI 46: Will address lifestyle modification education. Time Spent Managing Pts Care (In Minutes): 55
[2020-01-11] MEDS: METRONIDAZOLE 500mg IVPB 500 MG/100 ML BAG IV SCH ×2 (08:52→16:30)
--- NOTE | 2020-01-11 10:07 | EKG ---
Test Date: 2020-01-10 Test Time: 18:49:12 Lieutenant Shift Supervisor: SIMRAN MEASUREMENT RESULTS: Intervals: Rate: 128 MD: 142 QRSD: 94 QT: 314 QTc: 458 [place]: P: 38 MD: 142 QRS: 154 T: 48 INTERPRETIVE STATEMENTS: Sinus tachycardia Left posterior fascicular block Abnormal ECG Compared to ECG 02/17/2014 08:40:34 Left posterior fascicular block now present Sinus rhythm no longer present Electronically Signed On 01-11-20 10:06:37 CDT by Vasyl Santacruz
--- NOTE | 2020-01-11 12:29 | CON ---
Date of Consultation: 01/11/2020 Diagnoses: Enteritis, possible bowel obstruction. History Of Present Illness: This is the case of a 49-year-old patient comes to the hospital with his tory of hypertension, found to have diarrhea for the last 4 days. Also, at the same time found to jung ve renal insufficiency. The imaging cannot rule out enteritis versus a small bowel obstruction, so s urgical consult was obtained. He had an episode like that multiple years ago, but he did not require any surgical intervention. He has no colonoscopies, although he was advised to do so. Allergies: PENICILLIN. Medical Problems: Hypertension, sleep apnea, morbid obesity. Past Surgical History: Cholecystectomy and right ear surgery. Family History: Diabetes and heart disease. He does not smoke. He does not drink alcohol. Review of Systems: Ten points otherwise unremarkable, although gastrointestinal shows a bloating and diarrhea that somet imes he claimed as green. Physical Examination: General: The patient is awake and alert. HEENT: Pupils anicteric. Neck: Supple. Chest: Clear. Abdomen: Soft and depressible. Mild generalized abdominal pain with no guarding or rebound. No per itoneal signs. Rectal: Deferred. Laboratory Data: Blood work shows WBC count of 18.0, today is 12.9, hemoglobin of 10.8, potassium is 3.9, creatinine is 1.6 and INR is 1.17. CAT scan of the abdomen and pelvis and KUB of today were di scussed with the patient. The details from Dr. Snell reading from yesterday and from last night we re discussed with the patient too. Plan: Continue bowel rest, hydration, and renal doctor for evaluation of renal insufficiency. Haydee w up stool cultures. He should follow up also with the physical therapy teacher. WOO/LUCERO Voice ID: [id number] Report ID: [id number]
--- NOTE | 2020-01-11 12:58 | RAD REPORT ---
EXAM DESCRIPTION: US - Renal Ultrasound-Complete - 01/11/2020 12:19 pm CLINICAL HISTORY: JOSE RAFAEL COMPARISON: Abdomen Pelvis Wo Contrast dated 01/10/2020 FINDINGS: The right kidney measures 13.2 x 6.1 x 6.9 cm. The left kidney measures 13.5 x 6.7 by 6.8 cm. Renal cortical thickness is normal. Echogenicity is increased slightly which could be body habit us affects, medical renal disease or a combination. There is no hydronephrosis. Left parapelvic cysts are present small in size. Urinary bladder is mostly contracted. IMPRESSION: No hydronephrosis or suspicious renal mass. Increased renal parenchymal echogenicity could be medical renal disease, body habitus artifact or a c ombination.
[2020-01-11] MEDS: D5 0.45 NS 1,000 ML IV SCH (16:30)
--- NOTE | 2020-01-11 21:15 | P.CNS ---
Date of Consult: 01/11/20 Reason for Consult: JOSE RAFAEL Requesting Physician: Elio Gallagher Primary Care Provider: Dr. Rodriguez Chief Complaint: Sepsis, SBO Vs. Enteritis History of Present Illness: 49-year-old male with history of hypertension and sleep apnea presents emergency department with 4 day history of diarrhea and upper abdominal pain. Patient reports that he has had loose, watery, green/clear diarrhea without nausea or vomiting. Patient reports a similar episode in 2007 at which time he was diagnosed with small bowel obstruction. Patient did not require surgical intervention at that time. During patient's workup in the emergency department he is found to have acute kidney injury with creatinine 2.25, GFR 31, BUN 28. Labs also stand for elevated white blood cell count at 18. Upon presentation to the emergency department patient was tachycardic and hypotensive with blood pressure of 81/54 and heart rate of 130, sepsis protocol was started in the emergency department, patient was given sepsis fluid bolus, early antibiotics and stool, blood cultures were obtained. Patient has improved with fluids, heart rate now around 100 with systolic blood pressure around 100. Initial lactate 2.0. CT abdomen pelvis shows multiples dilated small-bowel loops present in the mid abdomen with no abrupt transition point or obstructing mass, findings could reflect early mechanical small bowel obstruction or a prominent ileus/enteritis pattern. Patient was given Flagyl/Levaquin in the emergency department. 18:49 This 49 yrs old Male presents to ER via Ambulatory with complaints of pm1 Shortness Of Breath, Abdominal Pain, Diarrhea. 18:49 The patient presents with abdominal pain in the upper abdomen. Onset: The pm1 symptoms/episode began/occurred this morning. The symptoms do not radiate. Associated signs and symptoms: Pertinent positives: diarrhea, Pertinent negatives: chest pain, fever, nausea, shortness of breath, vomiting. The symptoms are described as crampy. Modifying factors: The symptoms are alleviated by nothing, the symptoms are aggravated by food. Severity of pain: in the emergency department the pain is actually worse. Patient was working in [employer] for the past week. On Friday he started having diarrhea. Multiple episode of diarrhea daily and he has had decreased urination. This morning he started having upper abdominal pain and shortness of breath along with the diarrhea. 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 and lives with his - Family History Mother Medical History: Heart disease, Diabetes, Cancer Father Medical History: Cancer - Social History Smoking Status: Never smoker Alcohol use: Yes CD- Drugs: No Caffeine use: Yes Place of Residence: Home Review of Systems 10-point ROS is otherwise unremarkable General: Weakness, Malaise Gastrointestinal: Diarrhea Neurological: Weakness Physical Examination Temp Pulse Resp BP Pulse Ox 97.4 F 88 18 111/56 L 98 01/11/20 16:00 01/11/20 16:00 01/11/20 16:00 01/11/20 16:00 01/11/20 16:00 General: In no apparent distress, Oriented x3, Cooperative HEENT: Atraumatic Neck: Supple Respiratory: Clear to auscultation bilaterally Cardiovascular: No edema, Regular rate/rhythm, No rubs Gastrointestinal: Soft and benign, Non-distended Musculoskeletal: No clubbing, No contractures Integumentary: No rashes, No cyanosis Neurological: Normal speech Blood work reviewed in the chart. Imagings Data: EXAM DESCRIPTION: CT - Abdomen Pelvis Wo Contrast - 01/10/2020 7:46 pm CLINICAL HISTORY: ABD PAIN COMPARISON: CT ABDOMEN PELVIS WO CONTRAST dated 02/08/2008 TECHNIQUE: Axial [address] imaging of the abdomen and pelvis was performed without IV contrast. No IV contrast was given because of allergy, abnormal renal function, patient refusal or physician request. No oral contrast administered. All CT scans are performed using dose optimization technique as appropriate and may include automated exposure control or mA/KV adjustment according to patient size. FINDINGS: No suspicious findings in the lung bases. Liver shows mild fatty infiltration pattern. No focal liver lesion. Spleen and pancreas show no suspicious findings. Cholecystectomy clips are present with no biliary tree dilatation. No hydronephrosis or suspicious renal mass. No significant adrenal finding. Isodense renal masses and pyelonephritis cannot be excluded in the absence of IV contrast. Urinary bladder is fully contracted limiting assessment. No bladder calculi. Fluid-filled distended stomach present with no gastric wall thickening or mass. No duodenal abnormality. Multiple dilated small bowel loops in the mid abdomen up to 4.8 cm in diameter. No abrupt transition or obstructing mass. Air and stool are present in nondilated colon. No active colon process seen. No free air, free fluid or inflammatory stranding. No hernia, mass or bulky lymphadenopathy. No suspicious bony findings. IMPRESSION: Multiple dilated small bowel loops are present in the mid abdomen. No abrupt transition point or obstructing mass. Patient has a similar appearance on the 2007 CT study with a more defined tra nsition point at that time. Findings could reflect early mechanical small bowel obstruction or a prominent ileus/enteritis process. No free air, abscess or other surgically emergent finding. Conclusions/Impression: A/ JOSE RAFAEL due to hypovolemia Proteinuria Acidosis Hypocalcemia HTN BRANDT Anemia in chronic illness Sepsis P/ Continue current POC and Medications Continue IVF. Continue Abx. Follow up with surgery. Advance diet per surgery. Consider starting a probiotic. No NSAIDs. AM labs. Daily weight. Thank you kindly for the consultation.
[2020-01-11] MEDS: Levofloxacin 250mg IV 250 MG/50 ML BAG IV SCH (21:36)
[2020-01-12] MEDS: METRONIDAZOLE 500mg IVPB 500 MG/100 ML BAG IV SCH ×3 (01:19→16:55)
[2020-01-12] MEDS: D5 0.45 NS 1,000 ML IV SCH ×4 (01:19→22:58)
[2020-01-12 04:01] LABS: Absolute Lymphocytes (CBC) 1.6 K/uL (0.7-4.9); Basophils % 0.8 % (0-1.3); Hematocrit 30.1 % (39.6-49.0); Lymphocytes % 20.9 % (15.3-44.8); MPV 7.8 fL (7.6-11.3); RBC Red Blood Cell Count 4.52 M/uL (4.33-5.43)
[2020-01-12 04:29] LABS: Magnesium 2.2 mg/dL (1.8-2.4); Potassium 3.7 mmol/L (3.5-5.1)
[2020-01-12] MEDS ORDERED: KCL 20 MEQ/100 mL IVPB 20 MEQ/100 ML BAG IV SCH (05:00)
[2020-01-12 05:38] VITALS: BMI 45.6
[2020-01-12 10:02] VITALS: O2SAT 95
--- NOTE | 2020-01-12 10:32 | RAD REPORT ---
EXAM DESCRIPTION: RAD - Abdomen 1 View (KUB) - 01/12/2020 9:02 am CLINICAL HISTORY: follow up enteritis vs sbo Pain COMPARISON: Abdomen 1 View (KUB) dated 01/11/2020; ABDOMEN 1 VIEW KUB dated 02/09/2008 FINDINGS: The bowel gas pattern is non-obstructive. No evidence of free air or pneumatosis. No suspi cious calcifications. No significant bony findings. Cholecystectomy clips. IMPRESSION: Negative examination.
--- NOTE | 2020-01-12 12:59 | P.PN ---
Subjective Date of Service: 01/12/20 Primary Care Provider: Dr. Rodriguez Chief Complaint: Sepsis, SBO Vs. Enteritis Subjective: Improving, Other (Patient reports no further diarrhea or nausea. Passage of gases noted.) Physical Examination - Vital Signs Temperature: 97.0 F Blood Pressure: 141/85 Pulse: 76 Respirations: 17 Pulse Ox (%): 100 - Physical Exam General: Alert, In no apparent distress, Oriented x3, Cooperative HEENT: Atraumatic Neck: Supple Respiratory: Clear to auscultation bilaterally, Normal air movement Cardiovascular: Normal pulses, Regular rate/rhythm Gastrointestinal: Normal bowel sounds, Soft and benign, Non-distended, No tenderness, No masses, No rebound, No guarding Integumentary: No erythema, No warmth, No cyanosis Neurological: Normal speech, Normal strength at 5/5 x4 extr, Normal tone, Normal affect - Studies Microbiology Data (last 24 hrs): 01/10/20 19:10 Stool Culture & Sensitivity - Final Medications List Reviewed: Yes Assessment & Plan Discharge Plan: Home Plan to discharge in: 24 Hours Physician Review Additional Text: Assessment Sepsis secondary to enteritis versus early small bowel obstruction Acute kidney injury Hypertension Obstructive sleep apnea on CPAP Obesity, BMI 46 Plan Sepsis secondary to enteritis versus early small bowel obstruction: Patient has improved. No further diarrhea or nausea noted. Passage of gas noted. KUB shows improvement. Will discuss with surgery about the possibility of initiating clear liquids and advance slowly. Encourage ambulation. And continue IV antibiotic therapy. Will monitor closely. Will also discuss with Nephrology. No surgical intervention needed at this time. Anticipate improvement in possible discharge as early as tomorrow if significantly improved. Acute kidney injury: Nephrology consulted. Renal ultrasound to be obtained. Continue IV fluids. Continue current medication. Await recommendations by nephrology. Hypertension: Continue to hold blood pressure medication at this time. Obstructive sleep apnea on CPAP: Patient may use his CPAP from home. Obesity, BMI 46: Will address lifestyle modification education. Time Spent Managing Pts Care (In Minutes): 55
--- NOTE | 2020-01-12 13:43 | PN ---
Date of Progress Note: 01/12/2020 Reason For Service: Enteritis and small bowel obstruction. Subjective: The patient is doing better. No nausea, no vomiting today. No more diarrhea. Review of Systems: No shortness of breath. No chest pain. No fever. Ten points otherwise unremarkable. Objective: Abdomen: Benign. Neuro: Oriented x3. Laboratory Data: WBC count came down to 7. X-rays are improving. No free air. Plan: We are going to advance diet to full liquid diet. Out of bed, ambulation. We explained to emma goncalves the importance of following up as an outpatient with the automatic mold sander since he is required to have a colonoscopy as soon as possible. WOO/LUCERO Voice ID: [id number] Report ID: [id number]
[2020-01-12 14:14] LABS: C.diff Antigen/Toxin Ag neg : Tox neg (NEG : NEG)
--- NOTE | 2020-01-12 14:49 | PN ---
Date of Progress Note: 01/12/2020 Subjective: The patient was seen and examined. He was able to tolerate the clear liquid diet well. Denies any complaints. He is waiting for his diet to be advanced. Objective: Vital Signs: Have been reviewed and are stable. General: He appears in no acute distress. Lungs: Clear to auscultation. Abdomen: Soft and nontender. Extremities: Without any evidence of edema. Laboratory Data: Includes sodium of 146, potassium of 3.7, chloride of 117, bicarb of 22, BUN of 23, and creatinine of 0.96. CBC showing stable hemoglobin, hematocrit, and platelet count. Current Medications: Have been reviewed in detail. Impression: 1.Acute renal failure secondary to acute tubular necrosis, improving. 2.Sepsis secondary to enteritis versus small bowel obstruction, improving with conservative manageme nt. 3.Hypertension. 4.Obstructive sleep apnea. Plan: The patient's renal function has significantly improved back to normal and hopefully his sodiu m will also improve with fluid intake. Continue to monitor closely. VV/MODL Voice ID: [id number] Report ID: [id number]
[2020-01-12] MEDS: Levofloxacin 250mg IV 250 MG/50 ML BAG IV SCH (20:47)
[2020-01-13] MEDS: METRONIDAZOLE 500mg IVPB 500 MG/100 ML BAG IV SCH ×2 (00:24→08:41)
[2020-01-13] MEDS: D5 0.45 NS 1,000 ML IV SCH (05:55)
[2020-01-13 06:20] LABS: Absolute Lymphocytes (CBC) 1.5 K/uL (0.7-4.9); Basophils % 0.5 % (0-1.3); Hematocrit 29.2 % (39.6-49.0); Lymphocytes % 18.3 % (15.3-44.8); MPV 7.7 fL (7.6-11.3); RBC Red Blood Cell Count 4.44 M/uL (4.33-5.43)
[2020-01-13 06:22] LABS: Potassium 3.5 mmol/L (3.5-5.1)
--- NOTE | 2020-01-13 08:04 | P.DS ---
Admission Date: 01/10/20 Discharge Date: 01/13/20 Primary Care Provider: Dr. Rodriguez Disposition: ROUTINE DISCHARGE Discharge Condition: GOOD Reason for Admission: Sepsis, SBO Vs. Enteritis Consultations: Surgery-Dr. Sharp Nephrology-Dr. Byrd Procedures: COVID: Negative C Diff: Negative CT scan: FINDINGS: No suspicious findings in the lung bases. Liver shows mild fatty infiltration pattern. No focal liver lesion. Spleen and pancreas show no suspicious findings. Cholecystectomy clips are present with no biliary tree dilatation. No hydronephrosis or suspicious renal mass. No significant adrenal finding. Isodense renal masses and pyelonephritis cannot be excluded in the absence of IV contrast. Urinary bladder is fully contracted limiting assessment. No bladder calculi. Fluid-filled distended stomach present with no gastric wall thickening or mass. No duodenal abnormality. Multiple dilated small bowel loops in the mid abdomen up to 4.8 cm in diameter. No abrupt transition or obstructing mass. Air and stool are present in nondilated colon. No active colon process seen. No free air, free fluid or inflammatory stranding. No hernia, mass or bulky lymphadenopathy. No suspicious bony findings. IMPRESSION: Multiple dilated small bowel loops are present in the mid abdomen. No abrupt transition point or obstructing mass. Patient has a similar appearance on the 2007 CT study with a more defined transition point at that time. Findings could reflect early mechanical small bowel obstruction or a prominent ileus/enteritis process. Follow up KUB: COMPARISON: Abdomen 1 View (KUB) dated 01/11/2020; ABDOMEN 1 VIEW KUB dated 02/09/2008 FINDINGS: The bowel gas pattern is non-obstructive. No evidence of free air or pneumatosis. No suspicious calcifications. No significant bony findings. Cholecystectomy clips. IMPRESSION: Negative examination. Renal US: COMPARISON: Abdomen Pelvis Wo Contrast dated 01/10/2020 FINDINGS: The right kidney measures 13.2 x 6.1 x 6.9 cm. The left kidney measures 13.5 x 6.7 by 6.8 cm. Renal cortical thickness is normal. Echogenicity is increased slightly which could be body habitus affects, medical renal disease or a combination. There is no hydronephrosis. Left parapelvic cysts are present small in size. Urinary bladder is mostly contracted. IMPRESSION: No hydronephrosis or suspicious renal mass. Increased renal parenchymal echogenicity could be medical renal disease, body habitus artifact or a combination. Medical problem list: Sepsis secondary to enteritis Acute kidney injury related to above and dehydration Hypertension Obstructive sleep apnea on CPAP Anemia likely dilutional but suspect iron deficiency Obesity, BMI 46 Brief History of Present Illness: 49-year-old male presented to the emergency room with increased nausea, vomiting and diarrhea for several days. Patient was seen and evaluated in the emergency room. Patient reported history of similar episode in the past due to small-bowel obstruction. Patient was initially hypotensive and tachycardic. Patient appeared to be septic. Septic protocol was initiated. Patient improved with IV fluid bolus. Patient admitted for further evaluation and treatment. Hospital Course: Patient presented with increased nausea, vomiting and diarrhea. This was related to enteritis. Patient was initially evaluated for sepsis. Patient given sepsis protocol. Patient improved with IV fluid hydration. Surgery was consulted to further evaluate. Patient had similar episode in the past due to small-bowel obstruction. This was further evaluated here. There appeared to be node abrupt transition point to indicate this. His condition slowly improved. Diet also advanced. Repeat KUB showed improvement. C diff culture negative. COVID test negative. Blood cultures negative. At discharge patient without significant nausea, vomiting, abdominal pain and/or diarrhea. Patient appears back to baseline. Renal function also improved. At discharge patient will continue with Levaquin 500 mg daily and Flagyl 500 mg 1 pill 3 times a day for 7 days. Patient will also be given lactobacillus 3 times a day for 7 days. Education on enteritis provided. Recommend GI evaluation as an outpatient to further address with the possibility in need for colonoscopy in the future to further evaluate. Patient with acute renal injury likely from dehydration and above. Nephrology was consulted. Renal ultrasound shows no hydronephrosis or mass. Medical renal disease was suspected. Renal function back to baseline. Recommend to recheck lab-BMP in 1-2 weeks to monitor his progress. Recommend follow up with nephrology in 2-4 weeks to further evaluate and monitor. Patient with hypertension. At discharge patient will continue with his current medication-Olmesartan 40 mg daily. Recommend to maintain blood pressure less than 130/80. Further adjustment can be done by his PCP. Patient with history of obstructive sleep apnea. Patient uses CPAP at home. At discharge he may continue with this. Patient also had some anemia. Suspect iron deficiency. Further lab obtained this can be followed up with his PCP. At discharge patient will continue with multi vitamin with iron daily. Recommend follow up with GI as an outpatient to further evaluate. Patient will likely require EGD/colonoscopy in the future to further address. Patient with obesity, BMI 46. Lifestyle modification education provided. Vital Signs/Physical Exam: Temp Pulse Resp BP Pulse Ox 98.1 F 85 24 H 138/72 97 01/13/20 04:00 01/13/20 04:00 01/13/20 04:00 01/13/20 04:00 01/13/20 04:00 General: Alert, In no apparent distress, Oriented x3, Cooperative HEENT: Atraumatic Neck: Supple Respiratory: Clear to auscultation bilaterally, Normal air movement Cardiovascular: Normal pulses, Regular rate/rhythm Gastrointestinal: Normal bowel sounds, Soft and benign, Non-distended, No tenderness, No masses, No rebound, No guarding Musculoskeletal: No erythema, No tenderness, No warmth Integumentary: No tenderness/swelling, No erythema, No warmth, No cyanosis Neurological: Normal speech, Normal strength at 5/5 x4 extr, Normal tone, Normal affect Laboratory Data at Discharge: WBC 8.2 K/uL (4.3-10.9) 01/13/20 05:40 Hgb 9.3 g/dL (13.6-17.9) L 01/13/20 05:40 Hct 29.2 % (39.6-49.0) L 01/13/20 05:40 Plt Count 349 K/uL (152-406) 01/13/20 05:40 PT 13.8 SECONDS (9.5-12.5) H 01/10/20 18:40 INR 1.17 01/10/20 18:40 APTT Cancelled 01/10/20 18:54 Sodium 142 mmol/L (136-145) 01/13/20 05:40 Potassium 3.5 mmol/L (3.5-5.1) 01/13/20 05:40 BUN 11 mg/dL (7-18) 01/13/20 05:40 Creatinine 0.97 mg/dL (0.55-1.3) 01/13/20 05:40 Glucose 108 mg/dL (74-106) H 01/13/20 05:40 Uric Acid 7.2 mg/dL (3.5-7.2) 01/11/20 03:28 Magnesium 2.0 mg/dL (1.8-2.4) 01/13/20 05:40 Total Bilirubin 0.6 mg/dL (0.2-1.0) 01/10/20 18:40 AST 18 U/L (15-37) 01/10/20 18:40 ALT 46 U/L (12-78) 01/10/20 18:40 Alkaline Phosphatase 123 U/L (45-117) H 01/10/20 18:40 Amylase Cancelled 01/10/20 18:54 Lipase Cancelled 01/10/20 18:54 Home Medications: Olmesartan Medoxomil 40 mg PO DAILY 01/11/20 Lactobacillus Acidophilus [Acidophilus Lactobacilli] 1 each PO TID #21 capsule 01/13/20 Levofloxacin [Levaquin] 500 mg PO DAILY #7 tablet 01/13/20 Multivitamin/Iron/Folic Acid [Multi-Day Plus Iron Tablet] 1 each PO DAILY #90 tablet 01/13/20 metroNIDAZOLE [Flagyl] 500 mg PO Q8H #21 tablet 01/13/20 New Medications: Lactobacillus Acidophilus [Acidophilus Lactobacilli] 1 each PO TID #21 capsule metroNIDAZOLE [Flagyl] 500 mg PO Q8H #21 tablet Levofloxacin [Levaquin] 500 mg PO DAILY #7 tablet Multivitamin/Iron/Folic Acid [Multi-Day Plus Iron Tablet] 1 each PO DAILY #90 tablet Patient Discharge Instructions: 1. Recommend follow up with PCP in 1 week to follow up this hospitalization. 2. Patient presented with increased nausea, vomiting and diarrhea. This was related to enteritis. Patient was initially evaluated for sepsis. Patient given sepsis protocol. Patient improved with IV fluid hydration. Surgery was consulted to further evaluate. Patient had similar episode in the past due to small-bowel obstruction. This was further evaluated here. There appeared to be node abrupt transition point to indicate this. His condition slowly improved. Diet also advanced. Repeat KUB showed improvement. C diff culture negative. COVID test negative. Blood cultures negative. At discharge patient without significant nausea, vomiting, abdominal pain and/or diarrhea. Patient appears back to baseline. Renal function also improved. At discharge patient will continue with Levaquin 500 mg daily and Flagyl 500 mg 1 pill 3 times a day for 7 days. Patient will also be given lactobacillus 3 times a day for 7 days. Education on enteritis provided. Recommend GI evaluation as an outpatient to further address with the possibility in need for colonoscopy in the future to further evaluate. 3. Patient with acute renal injury likely from dehydration and above. Nephrology was consulted. Renal ultrasound shows no hydronephrosis or mass. Medical renal disease was suspected. Renal function back to baseline. Recommend to recheck lab-BMP in 1- 2 weeks to monitor his progress. Recommend follow up with nephrology in 2-4 weeks to further evaluate and monitor. 4. Patient with hypertension. At discharge patient will continue with his current medication-Olmesartan 40 mg daily. Recommend to maintain blood pressure less than 130/80. Further adjustment can be done by his PCP. 5. Patient with history of obstructive sleep apnea. Patient uses CPAP at home. At discharge he may continue with this. 6. Patient with obesity, BMI 46. Lifestyle modification education provided. 7. Patient also had some anemia. Suspect iron deficiency. Further lab obtained, on this can be followed up with his PCP. At discharge patient will continue with multi vitamin with iron daily. Recommend follow up with GI as an outpatient to further evaluate. Patient will likely require EGD/colonoscopy in the future to further address. Diet: AHA Activity: Ad karmen Followup: Onel Rodriguez MD [Primary Care Provider] - Time spent managing pt's care (in minutes): 55
[2020-01-13 08:24] VITALS: BP 135/67; TEMP 97.2
[2020-01-13] MEDS ORDERED: HOME MED 1 EA UNK (Olmesartan Medoxomil [Olmesartan Medoxomil] 40 MG) PO SCH (09:00)
[2020-01-13] MEDS ORDERED: POTASSIUM CL SA 10 MEQ TAB PO ONE (09:00)
[2020-01-13] MEDS ORDERED: VALSARTAN 160 MG TAB PO SCH (09:00)
[2020-01-13 09:32] LABS: Ferritin 7.4 ng/mL (26-388)
== END 2020-01-13 10:34 | disposition home or self-care (01) | DRG 871 ==
LOC: ER 18:05 → 2ND 23:43
PROVIDERS: ADMIT Family Medicine; ATTEND Family Medicine
DX: A41.9 Sepsis, unspecified organism (principal); N17.0 Acute kidney failure with tubular necrosis; Z68.42 Body mass index [BMI] 45.0-49.9, adult; E87.2 Acidosis; E66.9 Obesity, unspecified; R65.20 Severe sepsis without septic shock; G47.33 Obstructive sleep apnea (adult) (pediatric); I10 Essential (primary) hypertension; E86.1 Hypovolemia; R80.9 Proteinuria, unspecified; E83.51 Hypocalcemia; D63.8 Anemia in other chronic diseases classified elsewhere; A08.4 Viral intestinal infection, unspecified; E86.0 Dehydration; D50.9 Iron deficiency anemia, unspecified; Z88.0 Allergy status to penicillin; Z90.49 Acquired absence of other specified parts of digestive tract; Z20.828 Contact with and (suspected) exposure to other viral communicable diseases
CPT/HCPCS: 36415; 71045; 74018; 74176; 76770; 80048; 80076; 81003; 81015; 82150; 82550; 82553; 82607; 82728; 83540; 83605; 83690; 83735; 83880; 83935; 84132; 84145; 84300; 84466; 84484; 84550; 85025; 85610; 85730; 87040; 87045; 87046; 87177; 87209; 87324; 87449; 87804; 89055; 93005; 94010; 99285; J2405; J3010; J3480; J7030; J7799; U0003

== ENCOUNTER 2022-10-18 08:46 | Day surgery (SDC) | payer BC ==
[2022-10-18] MEDS ORDERED: OXYMETAZOLINE HCL 0.05% 15ML NAS ONE (09:15)
[2022-10-18] MEDS ORDERED: Ringers Lactate 1,000 ML IV ONE (09:15)
[2022-10-18] MEDS ORDERED: propofoL 200 MG/20 ML VIAL IV ONE (11:23)
[2022-10-18] MEDS ORDERED: LIDOCAINE 1% MPF 5 ML VIAL ONE (11:24)
--- NOTE | 2022-10-18 12:01 | P.OP ---
Date of Service: 10/18/22 Surgeon: Dr. Elvira Echols Packaging Tech: None Procedure: Evaluation of sleep disordered breathing by examination of upper airway using an endoscope; CPT: 17591 Preoperative diagnosis: Moderate or severe obstructive sleep apnea with positive airway pressure intolerance. Postoperative diagnosis: Moderate or severe sleep apnea with positive pressure airway intolerance. Anesthesia: IV sedation Estimated blood loss: None Complications: None Brief clinical history: This is a 52-year-old patient with a history of moderate to severe symptomatic obstructive sleep apnea who is intolerant and unable to achieve benefit with positive pressure therapy. The patient underwent gastric sleeve and lost approximately 100 pounds in the last year and is continuing to lose weight. He has been diagnosed with obstructive sleep apnea with an AHI of 25 with no central or mixed apneas. He has problems with his CPAP including significant leak. His compliance report for June through September 2022 demonstrates an average leak per minute of 95.5. They present today for drug- induced sleep endoscopy to better characterize the location and pattern of obstruction and to predict appropriate medical and/or surgical options moving forward Procedure findings: There was no evidence of complete concentric palatal obstruction and they appear to be a candidate anatomically for hypoglossal nerve stimulation therapy. Description of procedure: The patient was brought to the endoscopy suite and was administered anesthesia via standard drug-induced sleep endoscopy protocol. The patient was administered propofol while under monitoring including oxygen concentration, CO2, blood pressure, and pulse under conditions felt to mimic sleep. The patient was nonresponsive to verbal commands but maintained spontaneous respiration. Patient was noted to have observed apnea and snoring consistent with diagnosis of obstructive sleep apnea. Under these conditions, the flexible endoscope was inserted into both sides of the nose and advanced to the nasopharynx, and oral pharynx with observation of the larynx. After suctioning of the oral cavity and oropharynx, the nasopharynx appeared essentially free from significant secretions. There was snoring and witnessed apneas but no significant collapse at the level of the soft palate. With a dvancement of the scope into the oral pharynx, the vallecula was filled by the base of tongue and lingual tonsil. There was lateral collapse at the level of the hypopharynx. At the conclusion of the exam, the scope was withdrawn. There was no evidence of any injury to the nasal mucosa and no evidence of active epistaxis. The patient was monitored with spontaneous ventilation until the patient's level of alertness increased and they responded to verbal commands and demonstrated active and intact control of their airway. The patient was then transferred to appropriate recovery prior to discharge. In summary, there was no evidence of complete concentric palatal obstruction and they appeared to be a candidate anatomically for hypoglossal nerve stimulation. I was present for and personally performed the entire procedure.
[2022-10-18 12:58] VITALS: TEMP 98.1
[2022-10-18 12:59] VITALS: BP 145/91; O2SAT 98
--- NOTE | 2022-10-21 13:17 | EKG ---
Test Date: 2022-10-17 Test Time: 12:04:24 Deaf Interpreter: FRANCESCA MEASUREMENT RESULTS: Intervals: Rate: 80 WI: 170 QRSD: 104 QT: 372 QTc: 429 [place]: P: 61 WI: 170 QRS: 104 T: 60 INTERPRETIVE STATEMENTS: Normal sinus rhythm Rightward axis Borderline ECG Compared to ECG 01/10/2020 18:49:12 Right-axis deviation now present Sinus tachycardia no longer present Left posterior fascicular block no longer present Electronically Signed On 10-21-22 13:11:23 CDT by Jesus Campbell
== END 2022-10-18 12:41 | disposition home or self-care (01) ==
LOC: OR 08:46
PROVIDERS: ATTEND Otolaryngology
PROC: 0CJS8ZZ Inspection of Larynx, Via Natural or Artificial Opening Endoscopic (ICD-10-PCS; principal; 2022-10-18 10:00)
DX: G47.33 Obstructive sleep apnea (adult) (pediatric) (principal); Z68.35 Body mass index [BMI] 35.0-35.9, adult; Z98.84 Bariatric surgery status
CPT/HCPCS: 42975; 93005; J2704; J2001; J7120